=== PATIENT | female | born 1965 | race Caucasian/White ===

== ENCOUNTER 2018-09-18 08:01 | Inpatient (IN) ==
--- NOTE | 2018-09-18 08:04 | Emergency Department Note ---
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 Disposition: Admitted As Inpatient Condition: Serious Time of Disposition: 11:54 General Adult HPI - General Stated complaint: lower abdominal pain Time Seen by Provider: 09/18/18 08:01 - Related Data Home Medications Medication Instructions Recorded Confirmed Aspirin Enteric Coated [Aspirin EC] 81 mg PO DAILY 05/12/18 09/18/18 Atenolol [Tenormin] 50 mg PO BID 05/12/18 09/18/18 Cyclobenzaprine [Flexeril] 10 mg PO BID PRN 05/12/18 09/18/18 Gabapentin [Neurontin] 300 mg PO TID 05/12/18 09/18/18 Magnesium Oxide [Mag-Ox] 400 mg PO DAILY 05/12/18 09/18/18 Pantoprazole Sodium [Protonix] 40 mg PO DAILY 05/12/18 09/18/18 Pravastatin Sodium [Pravachol] 40 mg PO DAILY 05/12/18 09/18/18 amLODIPine [Norvasc] 5 mg PO DAILY 05/12/18 09/18/18 Lisinopril-HCTZ 20-12.5 [Prinzide 20 - 25 mg PO DAILY 08/28/18 09/18/18 20-12.5] Allergies Allergy/AdvReac Type Severity Reaction Status Date / Time ketorolac [From Toradol] Allergy Irritable Verified 08/28/18 19:24 Carbinoxamine [From Rondec] AdvReac Vomiting Verified 08/28/18 19:24 pseudoephedrine [From Rondec] AdvReac Vomiting Verified 08/28/18 19:24 Past Medical History - Past Medical History Medical history: Reports: diabetes, GERD, hyperlipidemia, hypertension Psychiatric history: Reports: no psych history - Social History Smoking Status: Former smoker Smokeless Tobacco Status: No Alcohol use: Reports: none Drug use: Reports: unknown Course Vital Signs Temperature 98.5 F 09/18/18 08:04 Pulse Rate 79 09/18/18 08:04 Respiratory Rate 18 09/18/18 08:04 Blood Pressure 93/56 09/18/18 08:04 O2 Sat by Pulse Oximetry 95 09/18/18 08:04 Temperature 97.7 F 09/18/18 10:43 Pulse Rate 74 09/18/18 10:43 Respiratory Rate 16 09/18/18 10:43 Blood Pressure 114/71 09/18/18 10:43 O2 Sat by Pulse Oximetry 91 09/18/18 10:43 Oxygen Delivery Oxygen Delivery Nasal Cannula Medical Decision Making - Lab Data Result diagrams: 09/18/18 09:02 09/18/18 09:02 Lab Results 09/18/18 09/18/18 09/18/18 Range/Units 09:02 09:02 09:02 WBC 20.0 H (4.3-11.1) K/mcL RBC 3.59 L (3.82-4.97) M/mcL Hgb 8.7 L (11.5-15.4) g/dL Hct 28.6 L (35.3-44.9) % MCV 79.7 L (83.0-100.0) fL MCH 24.2 L (28.0-33.3) pg MCHC 30.4 L (31.6-35.5) g/dL RDW 19.8 H (11.5-14.5) % Plt Count 351 (140-400) K/mcL MPV 9.5 (9.4-12.4) fL Immature Gran % 0.7 (0-4) % Seg Neutrophils % 84.7 % Lymphocytes % 8.7 % Monocytes % 5.6 % Eosinophils % 0.2 % Basophils % 0.1 % Neutrophils # 16.9 H (1.6-8.9) K/mcL Lymphocytes # 1.8 (0.6-4.6) K/mcL Monocytes # 1.1 (0.0-1.3) K/mcL Eosinophils # 0.0 (0.0-0.6) K/mcL Basophils # 0.0 (0.0-0.2) K/mcL Sodium 136 (136-145) mEq/L Potassium 3.7 (3.5-5.1) mEq/L Chloride 104 (98-107) mEq/L Carbon Dioxide 22 L (23-29) mEq/L BUN 20 (6-20) mg/dL Creatinine 1.54 H (0.60-1.20) mg/dL Est GFR ( Amer) 43 L (> 60) Est GFR (Non-Af Amer) 36 L (> 60) BUN/Creatinine Ratio 13 (6-26) Glucose 183 H (70-105) mg/dL Calculated Osmolality 289 (280-300) Lactic Acid 1.2 (0.5-2.2) mmol/L Calcium 9.0 (8.6-10.3) mg/dL Total Bilirubin 0.5 (0.3-1.0) mg/dL Direct Bilirubin 0.2 (0.0-0.2) mg/dL Indirect Bilirubin 0.3 (0.0-1.2) mg/dL AST 9 L (13-39) Units/L ALT 7 (7-52) Units/L Alkaline Phosphatase 68 (34-104) Units/L Troponin I (< 0.04) ng/mL Serum Total Protein 6.5 (6.4-8.9) g/dL Albumin 3.4 L (3.5-5.7) g/dL Globulin 3.1 (2.4-3.5) g/dL Albumin/Globulin Ratio 1.1 (1.1-2.2) Lipase 11 (11-82) Units/L // Range/Units 09:02 WBC (4.3-11.1) K/mcL RBC (3.82-4.97) M/mcL Hgb (11.5-15.4) g/dL Hct (35.3-44.9) % MCV (83.0-100.0) fL MCH (28.0-33.3) pg MCHC (31.6-35.5) g/dL RDW (11.5-14.5) % Plt Count (140-400) K/mcL MPV (9.4-12.4) fL Immature Gran % (0-4) % Seg Neutrophils % % Lymphocytes % % Monocytes % % Eosinophils % % Basophils % % Neutrophils # (1.6-8.9) K/mcL Lymphocytes # (0.6-4.6) K/mcL Monocytes # (0.0-1.3) K/mcL Eosinophils # (0.0-0.6) K/mcL Basophils # (0.0-0.2) K/mcL Sodium (136-145) mEq/L Potassium (3.5-5.1) mEq/L Chloride (98-107) mEq/L Carbon Dioxide (23-29) mEq/L BUN (6-20) mg/dL Creatinine (0.60-1.20) mg/dL Est GFR ( Amer) (> 60) Est GFR (Non-Af Amer) (> 60) BUN/Creatinine Ratio (6-26) Glucose (70-105) mg/dL Calculated Osmolality (280-300) Lactic Acid (0.5-2.2) mmol/L Calcium (8.6-10.3) mg/dL Total Bilirubin (0.3-1.0) mg/dL Direct Bilirubin (0.0-0.2) mg/dL Indirect Bilirubin (0.0-1.2) mg/dL AST (13-39) Units/L ALT (7-52) Units/L Alkaline Phosphatase (34-104) Units/L Troponin I < 0.03 (< 0.04) ng/mL Serum Total Protein (6.4-8.9) g/dL Albumin (3.5-5.7) g/dL Globulin (2.4-3.5) g/dL Albumin/Globulin Ratio (1.1-2.2) Lipase (11-82) Units/L Attestation Statement - Attestation Attestation: I reviewed the residents documentation and agree with the residents assessment and plan of care. I have personally had face to face time with the patient. (Brief History, Brief Exam, and MDM) I personally supervised and was present for the black/critical portions of the following procedures completed by the resident: (add procedures performed here). [id number] time provided Patient presents by EMS for nausea and vomiting. Actively retching upon arrival. I attest to supervise the resident physician interpretation of ECG. CT shows cecal mass with concern for obstruction. Surgery agreeable to admit
[2018-09-18] MEDS ORDERED: Ondansetron 4 MG/2 ML VIAL IVP STA (08:05)
[2018-09-18] MEDS ORDERED: *HR* FentaNYL (PF) 100 MCG/2 ML VIAL IVP ONE (08:06)
--- NOTE | 2018-09-18 08:06 | Emergency Department Note ---
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 Patient states she has had this pain before in June of this year states that she "suffered through it" for a couple of days before it spontaneously resolved. Patient's had no prior abdominal surgeries, she has a family history of colon cancer, she also admits to nausea and vomiting during this episode of bilious emesis, she denies fevers or chills, she has no diarrhea or constipation her last bowel movement was today. She has no other concerns or complaints at this time. Upon my initial evaluation the patient is lying in hospital bed she is holding the right side of her abdomen, she is moaning in pain. Patient appears to be in distress due to her pain. Pt Subjective Complaint: abdominal pain Onset (ago): day(s) Consistency: Worsening Location: RLQ Pain Severity: severe Pain Scale: 8 Quality: cramping, stabbing Radiation: epigastric Migration to: no migration Improves with: nothing Worsens with: nothing Associated symptoms: Reports: nausea, vomiting Treatments prior to arrival: none - Related Data Home Medications Medication Instructions Recorded Confirmed Albuterol Sulfate [Ventolin Hfa] 2 puff IH Q4H PRN 05/12/18 08/28/18 Allopurinol [Zyloprim 300 MG] 300 mg PO DAILY 05/12/18 08/28/18 Aspirin Enteric Coated [Aspirin EC] 81 mg PO DAILY 05/12/18 08/28/18 Atenolol [Tenormin] 50 mg PO BID 05/12/18 08/28/18 Cyanocobalamin (Vitamin B-12) 500 mcg PO DAILY 05/12/18 08/28/18 [Vitamin B-12] Cyclobenzaprine [Flexeril] 10 mg PO BID PRN 05/12/18 08/28/18 Gabapentin [Neurontin] 300 mg PO TID 05/12/18 08/28/18 Magnesium Oxide [Mag-Ox] 400 mg PO DAILY 05/12/18 08/28/18 Meloxicam [Mobic] 7.5 mg PO DAILY 05/12/18 08/28/18 Metformin HCl [Fortamet] 500 mg PO BIDWM 05/12/18 08/28/18 Pantoprazole Sodium [Protonix] 40 mg PO DAILY 05/12/18 08/28/18 Pravastatin Sodium [Pravachol] 40 mg PO DAILY 05/12/18 08/28/18 amLODIPine [Norvasc] 5 mg PO DAILY 05/12/18 08/28/18 Lisinopril-HCTZ 20-12.5 [Prinzide 20 - 25 mg PO DAILY 08/28/18 08/28/18 20-12.5] Previous Rx's Medication Instructions Recorded Ferrous Sulfate 325 mg PO DAILY@0800 #30 tablet 05/12/18 Allergies Allergy/AdvReac Type Severity Reaction Status Date / Time ketorolac [From Toradol] Allergy Irritable Verified 08/28/18 19:24 Carbinoxamine [From Rondec] AdvReac Vomiting Verified 08/28/18 19:24 pseudoephedrine [From Rondec] AdvReac Vomiting Verified 08/28/18 19:24 All systems ED: reviewed and negative except as stated. Review of Systems: As Per HPI Constitutional: Denies: fever, chills Cardiovascular: Denies: chest pain Respiratory: Denies: dyspnea Gastrointestinal: Reports: abdominal pain, nausea, vomiting. Denies: diarrhea, hematemesis, melena, hematochezia Genitourinary: Denies: urgency, dysuria, frequency, hematuria Musculoskeletal: Denies: back pain, neck pain Neurological: Denies: headache, weakness, numbness, paresthesias Abdominal Pain PMH - Past Medical History Medical history: Reports: diabetes, GERD, hyperlipidemia, hypertension Female Surgical History: Reports: , cholecystectomy Psychiatric history: Reports: no psych history - Social History Smoking status: Former smoker Alcohol use: Reports: none Drug use: Reports: unknown Physical Exam Constitutional: No acute distress, [id number], engaged to conversation, speech is fluid, answers questions appropriately Neuro: GCS 15, no overt focal neurological deficits Head: Atraumatic, normocephalic Eyes: Pupils equal, round and reactive to light, no scleral icterus, no conjunctival injection Mouth: No lip swelling, perioral cyanosis, drooling, or trismus. Neck: Trachea midline without deviation. Anterior neck is supple without swelling, no overt thyromegaly noted. Chest: Symmetric chest wall rise Heart: Cardiac rhythm and rate are regular with S1 and S2 , no S3 or S4 appreciated, no murmurs, rubs, or clicks. Lungs: Lungs are clear to auscultation bilaterally, without accessory muscle use or prolonged expiratory phase. No wheezes, rhonchi, rales or stridor appreciated. *Abdomen: Diffusely tender to palpation specifically in the right lower quadrant. Abdomen is obese, soft to palpation, normal bowel sounds, no evidence of bruising, surgical incisions, or abnormal mass. No abdominal bruit auscultated. Non-distended, non-rigid, no organomegaly, no ascites appreciated. No pulsatile mass, no guarding to palpation in all four quadrants, no rebound Extremities: No evidence of pedal edema, joint swelling or erythema. Puls es/motor intact in all 4 extremities. Integumentary: warm, dry, intact, normal color. No rash, cyanosis, diaphoresis, erythema, or pallor - General Limitations: no limitations General appearance: alert, in distress Course Course Narrative: CBC, BMP, hepatic panel, lipase, CT of the abdomen and pelvis without contrast Fentanyl, Zofran, IV fluids and management patient's symptoms. - Reevaluation(s) Reevaluation #1: Spoke with Dr. Zaidi in general surgery regarding the patient's cecal mass with small bowel obstruction. Dr. Zaidi requests patient to be made nothing by mouth status with NG tube placed. Dr. Zaidi like patient vomited directly to surgical medicine service states patient will be likely taken surgery today. 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 Patient has been informed of these findings and verbalizes her understanding and agreement with this plan. The patient's hemodynamic was stable time of admission. - Lab Data Lab results reviewed: Yes I reviewed the patient's lab results. Result diagrams: 09/18/18 09:02 09/18/18 09:02 Lab Results 09/18/18 09/18/18 09/18/18 Range/Units 09:02 09:02 09:02 WBC 20.0 H (4.3-11.1) K/mcL RBC 3.59 L (3.82-4.97) M/mcL Hgb 8.7 L (11.5-15.4) g/dL Hct 28.6 L (35.3-44.9) % MCV 79.7 L (83.0-100.0) fL MCH 24.2 L (28.0-33.3) pg MCHC 30.4 L (31.6-35.5) g/dL RDW 19.8 H (11.5-14.5) % Plt Count 351 (140-400) K/mcL MPV 9.5 (9.4-12.4) fL Immature Gran % 0.7 (0-4) % Seg Neutrophils % 84.7 % Lymphocytes % 8.7 % Monocytes % 5.6 % Eosinophils % 0.2 % Basophils % 0.1 % Neutrophils # 16.9 H (1.6-8.9) K/mcL Lymphocytes # 1.8 (0.6-4.6) K/mcL Monocytes # 1.1 (0.0-1.3) K/mcL Eosinophils # 0.0 (0.0-0.6) K/mcL Basophils # 0.0 (0.0-0.2) K/mcL Carbon Dioxide 22 L (23-29) mEq/L BUN 20 (6-20) mg/dL Creatinine 1.54 H (0.60-1.20) mg/dL Est GFR ( Amer) 43 L (> 60) Est GFR (Non-Af Amer) 36 L (> 60) BUN/Creatinine Ratio 13 (6-26) Glucose 183 H (70-105) mg/dL Lactic Acid 1.2 (0.5-2.2) mmol/L Calcium 9.0 (8.6-10.3) mg/dL Total Bilirubin 0.5 (0.3-1.0) mg/dL Direct Bilirubin 0.2 (0.0-0.2) mg/dL Indirect Bilirubin 0.3 (0.0-1.2) mg/dL AST 9 L (13-39) Units/L ALT 7 (7-52) Units/L Alkaline Phosphatase 68 (34-104) Units/L Troponin I (< 0.04) ng/mL Serum Total Protein 6.5 (6.4-8.9) g/dL Albumin 3.4 L (3.5-5.7) g/dL Globulin 3.1 (2.4-3.5) g/dL Albumin/Globulin Ratio 1.1 (1.1-2.2) Lipase 11 (11-82) Units/L 09/18/18 Range/Units 09:02 WBC (4.3-11.1) K/mcL RBC (3.82-4.97) M/mcL Hgb (11.5-15.4) g/dL Hct (35.3-44.9) % MCV (83.0-100.0) fL MCH (28.0-33.3) pg MCHC (31.6-35.5) g/dL RDW (11.5-14.5) % Plt Count (140-400) K/mcL MPV (9.4-12.4) fL Immature Gran % (0-4) % Seg Neutrophils % % Lymphocytes % % Monocytes % % Eosinophils % % Basophils % % Neutrophils # (1.6-8.9) K/mcL Lymphocytes # (0.6-4.6) K/mcL Monocytes # (0.0-1.3) K/mcL Eosinophils # (0.0-0.6) K/mcL Basophils # (0.0-0.2) K/mcL Carbon Dioxide (23-29) mEq/L BUN (6-20) mg/dL Creatinine (0.60-1.20) mg/dL Est GFR ( Amer) (> 60) Est GFR (Non-Af Amer) (> 60) BUN/Creatinine Ratio (6-26) Glucose (70-105) mg/dL Lactic Acid (0.5-2.2) mmol/L Calcium (8.6-10.3) mg/dL Total Bilirubin (0.3-1.0) mg/dL Direct Bilirubin (0.0-0.2) mg/dL Indirect Bilirubin (0.0-1.2) mg/dL AST (13-39) Units/L ALT (7-52) Units/L Alkaline Phosphatase (34-104) Units/L Troponin I < 0.03 (< 0.04) ng/mL Serum Total Protein (6.4-8.9) g/dL Albumin (3.5-5.7) g/dL Globulin (2.4-3.5) g/dL Albumin/Globulin Ratio (1.1-2.2) Lipase (11-82) Units/L - Radiology Data Radiology results reviewed: Yes I reviewed the patient's radiology results. Abdomen/Pelvis CT 09/18/18 08:05 IMPRESSION: Heterogeneous cecal mass measuring 5.0 x 4.7 x 5.6 cm consistent with a neoplastic process until proven otherwise. This results in a small bowel obstruction at the level of the ileocecal valve. Mesenteric lymphadenopathy adjacent to the cecum likely representing michelle metastatic disease. Indeterminate but likely benign liver lesion. Given the above findings, MRI of the abdomen is recommended for further evaluation. The above findings were discussed with Dr. Escalante at 8:50 a.m. on 09/18/2018. D/ / 09/18/2018 08:59:[address] MD / tip Interpreting Provider: Jose Lane MD - EKG Data EKG attestation: Yes I reviewed and interpreted this EKG. EKG results narrative: Patient EKG shows sinus rhythm with a heart of 75 bpm, IL interval of 161 ms, QS duration 103 ms, QT/QTc interval 394/441 ms effectively. There are no significant ST segment elevations, depressions, pathologic Q waves, abnormal T- wave inversions, nor any other signs of ischemic change. At this time is no prior EKG available.
[2018-09-18] MEDS ORDERED: 0.9 % Sodium Chloride 1,000 ML ONE (08:11)
[2018-09-18] MEDS: 0.9 % Sodium Chloride 1,000 ML IVC SCH ×2 (08:12→09:37)
[2018-09-18] MEDS ORDERED: *HR* HYDROmorphone (PF) 1 MG/ML SYRINGE IVP ONE (09:00)
[2018-09-18] MEDS ORDERED: Ondansetron 4 MG/2 ML VIAL IVP ONE ×2 (09:01→17:32)
[2018-09-18 09:14] LABS: Basophils % 0.1 %; Eosinophils % 0.2 %; Hematocrit 28.6 % (35.3-44.9); Hemoglobin 8.7 g/dL (11.5-15.4); Immature Granulocytes % 0.7 % (0-4); Lymphocytes # 1.8 K/mcL (0.6-4.6); Lymphocytes % 8.7 %; Mean Corpuscular HGB Conc 30.4 g/dL (31.6-35.5); Mean Corpuscular Hemoglobin 24.2 pg (28.0-33.3); Mean Corpuscular Volume 79.7 fL (83.0-100.0); Mean Platelet Volume 9.5 fL (9.4-12.4); Monocytes # 1.1 K/mcL (0.0-1.3); Monocytes % 5.6 %; Neutrophils # 16.9 K/mcL (1.6-8.9); Platelet Count 351 K/mcL (140-400); Red Blood Count 3.59 M/mcL (3.82-4.97); Red Cell Distribution Width 19.8 % (11.5-14.5); Segmented Neutrophils % 84.7 %
--- NOTE | 2018-09-18 09:16 | Anesthesia Evaluation PreOp ---
Date of Encounter: 09/18/18 Time of Encounter: 09:49 - Past History Planned Operation: EXP LAPAROTOMY, RIGHT HEMICOLECTOMY Cardiac History: HTN, Hyperlipidemia Pulmonary History: Smoker, COPD [employer] History: Denies Any Significant HX Other Medical History: Renal (CKD3, ? MARK), Bleeding (ANEMIA), Diabetes Type II, GERD, Other (RIGHT CECAL MASS, WITH SBO) Anesthesia History: No Prior Anesthetic Complications, Past Anesthesia Alcohol Use: none Drug use: unknown Medications and Allergies Aspirin Enteric Coated [Aspirin EC] 81 mg PO DAILY 05/12/18 [History] Atenolol [Tenormin] 50 mg PO BID 05/12/18 [History] Cyclobenzaprine [Flexeril] 10 mg PO BID PRN 05/12/18 [History] Gabapentin [Neurontin] 300 mg PO TID 05/12/18 [History] Magnesium Oxide [Mag-Ox] 400 mg PO DAILY 05/12/18 [History] Pantoprazole Sodium [Protonix] 40 mg PO DAILY 05/12/18 [History] Pravastatin Sodium [Pravachol] 40 mg PO DAILY 05/12/18 [History] amLODIPine [Norvasc] 5 mg PO DAILY 05/12/18 [History] Lisinopril-HCTZ 20-12.5 [Prinzide 20-12.5] 20 - 25 mg PO DAILY 08/28/18 [History] Allergy/AdvReac Type Severity Reaction Status Date / Time ketorolac [From Toradol] Allergy Irritable Verified 08/28/18 19:24 Carbinoxamine [From Rondec] AdvReac Vomiting Verified 08/28/18 19:24 pseudoephedrine [From Rondec] AdvReac Vomiting Verified 08/28/18 19:24 - Meds/Allergy Pre-op Review Medications Reviewed: Yes Allergies Reviewed: Yes Beta Blockers on Current Med List: No Anesthesia Results - Labs 09/18/18 09:02 09/18/18 09:02 Anesthesia Exam Vital Signs/O2 Sat/Glucose, Most Recent Temp Pulse Resp BP Pulse Ox 98.5 F 79 18 93/56 95 09/18/18 08:04 09/18/18 08:04 09/18/18 08:04 09/18/18 08:04 09/18/18 08:04 Weight: 91 KG - BMI 37 NPO (# of Hours): 8 - HEENT Mallampati: II Teeth: Edentulous - Cardiac Rhythm: Regular - Pulmonary Breath Sounds: bilateral Clear Anesthesia Assess/Plan ASA Score: 3, E Anesthetic Plan: General, Regional Nerve Block (POSSIBLE SHARI TAP BLOCK FOR POST OPERATIVE PAIN) Monitoring Plan: Standard Monitors Recovery Plan: PACU
[2018-09-18 09:32] LABS: Albumin 3.4 g/dL (3.5-5.7); Albumin/Globulin Ratio 1.1 (1.1-2.2); Bilirubin,Direct 0.2 mg/dL (0.0-0.2); Bilirubin,Indirect 0.3 mg/dL (0.0-1.2); Bilirubin,Total 0.5 mg/dL (0.3-1.0); Globulin 3.1 g/dL (2.4-3.5); Total Protein 6.5 g/dL (6.4-8.9)
[2018-09-18 10:20] LABS: Potassium 3.7 mEq/L (3.5-5.1)
[2018-09-18] MEDS ORDERED: *HR* OxyCODONE Immed Rel 5 MG TABLET PO PRN (12:52)
[2018-09-18] MEDS ORDERED: Naloxone 0.4 MG/ML INJ IVP PRN ×2 (12:52→21:40)
[2018-09-18] MEDS ORDERED: traMADol 50 MG TABLET PO PRN (12:52)
[2018-09-18] MEDS ORDERED: Ondansetron ODT 4 MG TAB.RAPDIS SL PRN ×2 (12:52→21:40)
[2018-09-18] MEDS ORDERED: Albuterol 2.5 MG/3 ML NEBULIZER IH PRN ×2 (12:56→21:40)
[2018-09-18] MEDS ORDERED: 0.9 % Sodium Chloride 1,000 ML IVC SCH (13:00)
--- NOTE | 2018-09-18 13:00 | Acute Care Surgery H&P ---
Date of Encounter: 09/18/18 Time of Encounter: 12:57 Assessment and Plan (1) Small bowel obstruction Current Visit: Yes Status: Acute 52F current smoker with obstructing colon mass; NPO IVF pain control plan for R selina colectomy today The assessment and plan as outlined above was discussed with the patient and/or family members who expressed understanding and agreement. All questions were answered. History of Present Illness Chief complaint: vomiting, abdominal pain HPI: Ms. Dominguez is a 52 year old female H significant for obesity, COPD (current smoker) who presents with two day history of worsening abdominal pain and nausea and vomiting. The pain is localized to the lower quadrants bilaterally, non radiating, rates an 8/10. The pain is associated with bilious vomiting. Of note the patient states that she had a similar episode 2 months ago with resolution after two weeks. She has never had a colonoscopy, but suspects that this may be related to cancer as she lost 15lbs without any identifiable explanation. A CT scan was obtained which confirmed an abnormality at the ileocecal valve with proximal intestinal diltation proximal to that. Surgery was consulted for management recommendations Past Med Surg Social Fam HX - Past Medical History Medical history: diabetes, GERD, hyperlipidemia, hypertension Psychiatric history: no psych history - Past Surgical History Surgical History: , cholecystectomy - Social History Smoking Status: Current every day smoker Smokeless Tobacco Status: No Alcohol use: none Drug use: unknown - Family History Brother Hx Family Cardiac Disorders: Yes - Additional Family History Additional family history: brother: from colon cancer in his 60s Medications and Allergies Aspirin Enteric Coated [Aspirin EC] 81 mg PO DAILY 05/12/18 [History] Atenolol [Tenormin] 50 mg PO BID 05/12/18 [History] Cyclobenzaprine [Flexeril] 10 mg PO BID PRN 05/12/18 [History] Gabapentin [Neurontin] 300 mg PO TID 05/12/18 [History] Magnesium Oxide [Mag-Ox] 400 mg PO DAILY 05/12/18 [History] Pantoprazole Sodium [Protonix] 40 mg PO DAILY 05/12/18 [History] Pravastatin Sodium [Pravachol] 40 mg PO DAILY 05/12/18 [History] amLODIPine [Norvasc] 5 mg PO DAILY 05/12/18 [History] Lisinopril-HCTZ 20-12.5 [Prinzide 20-12.5] 20 - 25 mg PO DAILY 08/28/18 [Hi story] Allergy/AdvReac Type Severity Reaction Status Date / Time ketorolac [From Toradol] Allergy Irritable Verified 08/28/18 19:24 Carbinoxamine [From Rondec] AdvReac Vomiting Verified 08/28/18 19:24 pseudoephedrine [From Rondec] AdvReac Vomiting Verified 08/28/18 19:24 Review of Systems All systems PM: 12 point ROS negative besides HPI findings General Surgery Exam Initial Vital Signs Temp Pulse Resp BP Pulse Ox 98.5 F 79 18 93/56 95 09/18/18 08:04 09/18/18 08:04 09/18/18 08:04 09/18/18 08:04 09/18/18 08:04 - General physical appearance no distress - Eyes PERRL, normal ocular movement - ENT normocephalic - Neck trachea midline, no lymphadectomy - Respiratory normal expansion, normal respiratory effort - Cardiovascular Cardiovascular exam: Present: RRR - Abdomen Abdomen general surgery: Present: soft, tender, surgical scars Abdominal Tenderness: Present: RLQ, LLQ - Integumentary Integumentary general surgery: Present: warm and dry - Neurologic Present: CN 2-12 grossly intact - Musculoskeletal Present: normal posture - Psychiatric Psychiatric general surgery: Present: A&Ox3 Results - Labs 09/18/18 09:02 09/18/18 09:02 Abnormal lab results WBC 20.0 K/mcL (4.3-11.1) H 09/18/18 09:02 RBC 3.59 M/mcL (3.82-4.97) L 09/18/18 09:02 Hgb 8.7 g/dL (11.5-15.4) L 09/18/18 09:02 Hct 28.6 % (35.3-44.9) L 09/18/18 09:02 MCV 79.7 fL (83.0-100.0) L 09/18/18 09:02 MCH 24.2 pg (28.0-33.3) L 09/18/18 09:02 MCHC 30.4 g/dL (31.6-35.5) L 09/18/18 09:02 RDW 19.8 % (11.5-14.5) H 09/18/18 09:02 Neutrophils # 16.9 K/mcL (1.6-8.9) H 09/18/18 09:02 Carbon Dioxide 22 mEq/L (23-29) L 09/18/18 09:02 Creatinine 1.54 mg/dL (0.60-1.20) H 09/18/18 09:02 Est GFR ( Amer) 43 (> 60) L 09/18/18 09:02 Est GFR (Non-Af Amer) 36 (> 60) L 09/18/18 09:02 Glucose 183 mg/dL (70-105) H 09/18/18 09:02 POC Glucose 186 mg/dL (70-99) H 09/18/18 09:09 AST 9 Units/L (13-39) L 09/18/18 09:02 Albumin 3.4 g/dL (3.5-5.7) L 09/18/18 09:02 Diabetes panel 09/18/18 Range/Units 09:02 Sodium 136 (136-145) mEq/L Potassium 3.7 (3.5-5.1) mEq/L Chloride 104 (98-107) mEq/L Carbon Dioxide 22 L (23-29) mEq/L BUN 20 (6-20) mg/dL Creatinine 1.54 H (0.60-1.20) mg/dL Glucose 183 H (70-105) mg/dL Calcium 9.0 (8.6-10.3) mg/dL AST 9 L (13-39) Units/L ALT 7 (7-52) Units/L Alkaline Phosphatase 68 (34-104) Units/L Albumin 3.4 L (3.5-5.7) g/dL Calcium panel 09/18/18 Range/Units 09:02 Calcium 9.0 (8.6-10.3) mg/dL Albumin 3.4 L (3.5-5.7) g/dL Pituitary panel 09/18/18 Range/Units 09:02 Sodium 136 (136-145) mEq/L Potassium 3.7 (3.5-5.1) mEq/L Chloride 104 (98-107) mEq/L Carbon Dioxide 22 L (23-29) mEq/L BUN 20 (6-20) mg/dL Creatinine 1.54 H (0.60-1.20) mg/dL Glucose 183 H (70-105) mg/dL Calcium 9.0 (8.6-10.3) mg/dL Adrenal panel 09/18/18 Range/Units 09:02 Sodium 136 (136-145) mEq/L Potassium 3.7 (3.5-5.1) mEq/L Chloride 104 (98-107) mEq/L Carbon Dioxide 22 L (23-29) mEq/L BUN 20 (6-20) mg/dL Creatinine 1.54 H (0.60-1.20) mg/dL Glucose 183 H (70-105) mg/dL Calcium 9.0 (8.6-10.3) mg/dL Total Bilirubin 0.5 (0.3-1.0) mg/dL AST 9 L (13-39) Units/L ALT 7 (7-52) Units/L Alkaline Phosphatase 68 (34-104) Units/L Albumin 3.4 L (3.5-5.7) g/dL All other labs normal. - Imaging CT scan - abdomen: report reviewed, image reviewed CT scan - pelvis: report reviewed, image reviewed
[2018-09-18 13:38] LABS: Amphetamine Screen,Urine Negative ng/mL (Cutoff=1000); Barbiturate Screen,Urine Negative ng/mL (Cutoff=200); Benzodiazepines Screen,Urine Negative ng/mL (Cutoff=200); Cannabinoid Screen,Urine Negative ng/mL (Cutoff = 50); Cocaine Screen,Urine Negative ng/mL (Cutoff= 300); Opiate Screen,Urine Positive ng/mL (Cutoff=300); Phencyclidine Screen,Urine Negative ng/mL (Cutoff=25)
[2018-09-18] MEDS ORDERED: Morphine Sulfate 2 MG/ML SYRINGE IVP ONE (16:43)
[2018-09-18] MEDS ORDERED: Ropivacaine/PF 0.5% 30 ML VIAL ONE (16:51)
[2018-09-18] MEDS ORDERED: Acetaminophen IV 1,000 MG/100 ML INFUS..BTL ONE (16:51)
[2018-09-18] MEDS ORDERED: Calcium Gluconate 1,000 MG/10 ML VIAL ONE (16:52)
[2018-09-18] MEDS ORDERED: *HR* FentaNYL (PF) 100 MCG/2 ML VIAL ONE ×2 (16:56→17:24)
[2018-09-18] MEDS ORDERED: *HR* Midazolam HCl 2 MG/2 ML VIAL ONE (16:57)
[2018-09-18] MEDS ORDERED: *HR* Propofol 200 MG/20 ML VIAL IVP ONE (16:57)
[2018-09-18] MEDS ORDERED: *HR* Rocuronium Bromide 50 MG/5 ML VIAL ONE ×2 (17:00→19:57)
[2018-09-18] MEDS ORDERED: Lidocaine -MPF 2% 2 ML VIAL ONE (17:00)
[2018-09-18] MEDS ORDERED: Dexamethasone 4 MG/ML VIAL ONE (17:00)
[2018-09-18] MEDS ORDERED: *HR* Succinylcholine 200 MG/10 ML VIAL IVP ONE (17:00)
[2018-09-18] MEDS ORDERED: *HR* PHENYLEPHRINE 1,000 MCG/10 ML SYRINGE IVP ONE (17:01)
[2018-09-18] MEDS: *HR* FentaNYL (PF) 100 MCG/2 ML VIAL IVP PRN ×2 (17:24→18:00)
[2018-09-18] MEDS ORDERED: *HR* Promethazine 25 MG/ML VIAL IVP PRN (17:32)
[2018-09-18] MEDS ORDERED: *HR* HYDROmorphone (PF) 1 MG/ML SYRINGE IVP PRN (17:32)
[2018-09-18] MEDS ORDERED: *HR* Meperidine 25 MG/ML SYRINGE IVP PRN (17:32)
[2018-09-18] MEDS ORDERED: Ipratropium/Albuterol Neb 3 ML IH PRN (17:33)
[2018-09-18] MEDS ORDERED: Ipratropium/Albuterol Neb 3 ML ONE (17:34)
[2018-09-18] MEDS ORDERED: CefOXitin 1,000 MG VIAL ONE (17:56)
[2018-09-18] MEDS ORDERED: cefOXitin 2,000 MG in Water for inj. (sterile) 20 ML IVP ONE (18:49)
[2018-09-18] MEDS ORDERED: Ondansetron 4 MG/2 ML VIAL ONE (19:01)
--- NOTE | 2018-09-18 21:03 | Operative Note ---
Date of procedure: 09/18/18 Pre-op diagnosis: small bowel obstruction Post-op diagnosis: other (small bowel obstructon 2/2 colon cancer) Procedure: open right hemicolectomy Implants: none Complications: none Anesthesia: GETA Local Anesthetics: 0.5% Sensorcaine HCL SubQ (cc) Surgeon: Bernabe Silva Was there an railways assistant present: Yes [facility] Manager: Corine Bolanos Estimated blood loss (cc): 50 Specimen: right colon and contents Condition: stable Disposition: PACU Procedure in Detail: patient was brought into the operating room suite. placed in supine position. mechanical dvt prophylaxis was placed. she underwent smooth induction of anesthesia. preoperative antibiotics were given. she was prepped and draped in the usual fashion. A timeout was held identifying correct patient, pathology, procedure, and physician. I created a midline incision, dissected through the soft tissue layers to enter the abdomen. I quickly noted lots of adhesions, fibrinous deposition, and serosanginous fluid, all concerning for microperforation. I set up the books willis and began my procedure. I was able to appreciate a large mass at the cecum that created a small focal point for the bowel to adhere to. I dissected along the white line of toldt and using blunt and sharp dissection I dissected the retroperitoneum from the colon. I then proceeded towards the hepatic fluxu re and was able to mobilize it as well until i was able to see the duodenum. I then opened the gastrocolic ligament to moblize the proximal hepatic flexure, created a mesenteric window lateral to the middle colic and stapled across the transverse colon with the TALA 75mm blue load stapler. I then performed the same maneuver proximally to the mass about 5cm along the terminal ileum. I then used the impact machine to ligate through the mesentery and passed off the specimen. I then created enterotomies in both the proximal and distal limb, inserted the arms of the stapler and fired the stapler to create the side to side anastamosis. I then lined up the enterotomy and closed it with the TA stapler. I then reinforced the staple line with Lembert sutures. The anastamosis was still wide and patent. I then closed the fascia with a looped PDS in a running fashion, closed the deep dermal layer with 3-0 vicryl and closed thes skin. I then applied the Jessee dressing. I then concluded the procedure and the patient was transported to PACU in stable condition.
--- NOTE | 2018-09-18 21:26 | Anesthesia Evaluation Post Op ---
Date of Encounter: 09/18/18 Time of Encounter: 21:25 - Vital Signs Vital Signs: Vital Signs/O2 Sat, Most Current Temp Pulse Resp BP Pulse Ox 98.9 F 85 18 118/64 93 09/18/18 20:57 09/18/18 21:17 09/18/18 21:17 09/18/18 21:17 09/18/18 21:17 - Lungs Lungs: Clear Ascult./Percussion - Airway Airway: Non-obstructed - Cardiovascular Regular Rate - Mental Status Mental Status: Asleep with brisk response to light stimulation - Pain Pain Scale: 0 Pain Scale used: Numeric (1 - 10) - Nausea Vomiting Nausea Vomiting: Not Present - Hydration Hydration: NPO, Lama catheter - Discharge PostOp Status: Transfer Patient to floor
[2018-09-18] MEDS ORDERED: *HR* Metoprolol 5 MG/5 ML VIAL IVP PRN (21:40)
[2018-09-18] MEDS ORDERED: *HR* HYDROmorphone 20 MG/20 ML PCA IVC PRN (21:40)
[2018-09-18] MEDS ORDERED: Morphine PCA 30 MG/ 30 ML 30 ML PCA.VIAL IVC PRN (23:25)
[2018-09-19] MEDS: D5% in 0.9% NACL 1,000 ML IVC SCH ×2 (00:19→09:08)
[2018-09-19] MEDS: Piperacillin/Tazobactam 3.375 GM in 0.9 % Sodium Chloride Mini Bag 100 ML IVPB SCH ×4 (00:27→23:59)
[2018-09-19] MEDS ORDERED: *HR* Enoxaparin 40 MG/0.4 ML SYRINGE SQ SCH ×2 (06:00)
[2018-09-19 06:47] LABS: Calcium 8.1 mg/dL (8.6-10.3)
[2018-09-19 08:15] LABS: Basophils % 0.1 %; Hemoglobin 8.1 g/dL (11.5-15.4); Immature Granulocytes % 0.4 % (0-4); Lymphocytes # 0.9 K/mcL (0.6-4.6); Lymphocytes % 6.2 %; Mean Corpuscular Hemoglobin 24.6 pg (28.0-33.3); Mean Corpuscular Volume 82.1 fL (83.0-100.0); Mean Platelet Volume 10.1 fL (9.4-12.4); Monocytes # 0.9 K/mcL (0.0-1.3); Monocytes % 6.6 %; Neutrophils # 12.1 K/mcL (1.6-8.9); Platelet Count 344 K/mcL (140-400); Red Blood Count 3.29 M/mcL (3.82-4.97); Red Cell Distribution Width 19.8 % (11.5-14.5); Segmented Neutrophils % 86.7 %
--- NOTE | 2018-09-19 08:35 | AcuteCareSurgery Progress Note ---
Date of Encounter: 09/19/18 Time of Encounter: 07:00 - Assessment and Plan (1) Small bowel obstruction Current Visit: Yes Status: Acute S/P right hemicolectomy with ileocecal anastomosis for presumed malignant colon mass. Maintain NGT, add ice chips and Biotene. Increase activity. (2) Hypertension Current Visit: No Status: Acute Restart home meds when pt is PO. VS q shift. Qualifiers: Hypertension type: essential hypertension Qualified Code(s): I10 - Essential (primary) hypertension (3) Morbid obesity Current Visit: No Status: Acute Subjective Patient reports: still having pain, pain is less, no flatus, no bowel movement, afebrile Narrative: POD#1 right hemocolectomy for probable malignancy. Pt is requesting NGT removal and asking for something to eat/drink. Objective Vital Signs - Last 8 Hours Temp Pulse Resp BP Pulse Ox 09/19/18 06:31 98.5 F 88 15 122/76 90 09/19/18 02:00 98.6 F 82 20 122/75 94 Intake and Output 09/18/18 09/19/18 09/19/18 23:59 07:59 15:59 Intake Total 20 / 1020 100 / 100 Output Total 100 / 100 1300 / 1300 Balance -80 / 920 -1200 / -1200 Intake: IV Fluids 20 / 1020 100 / 100 Mefoxin 2,000 MG In Water for 20 / 20 inj. (sterile) 20 ML @ 300 mls/ hr IVP ONCE ONE Rx#:[id number] Zosyn 3.375 GM In 0.9 % Sodium 100 / 100 Chloride (Mini-Bag +) 100 ML @ 25 mls/hr IVPB Q8HR ON LICENSE OF [facility] Rx#: [id number] Oral 0 / 0 0 / 0 Output: Urine 50 / 50 Gastric Tube Lavage Amount 650 / 650 Right Nare 650 / 650 Estimated Blood Loss 50 / 50 Catheter 275 / 275 Urethral (Lama) 250 / 250 Gastric Drainage 375 / 375 Other: Blood Glucose* 162 220 - General physical appearance well nourished, moderate distress, moderate pain (controlled) - Eyes PERRL, normal ocular movement - ENT no congestion, dry mucosa - Neck Neck exam: trachea midline, no venous distension - Respiratory normal respiratory effort, clear to auscultation - Cardiovascular Cardiovascular exam: Present: RRR. Absent: JVD - Abdomen Abdomen: Present: bowel sounds present (normal), soft, tender Abdominal Tenderness: diffusely - Incision Incision: Present: clean and dry, intact - Neurologic CN 2-12 grossly intact, normal coordination - Musculoskeletal normal posture - Psychiatric oriented to time, oriented to person, oriented to place - Labs 09/19/18 05:41 09/19/18 05:41 Diabetes panel 09/18/18 09/19/18 Range/Units 09:02 05:41 Sodium 136 139 (136-145) mEq/L Potassium 3.7 4.0 (3.5-5.1) mEq/L Chloride 104 105 (98-107) mEq/L Carbon Dioxide 22 L 21 L (23-29) mEq/L BUN 20 26 H (6-20) mg/dL Creatinine 1.54 H 1.59 H (0.60-1.20) mg/dL Glucose 183 H 214 H (70-105) mg/dL Calcium 9.0 8.1 L (8.6-10.3) mg/dL AST 9 L (13-39) Units/L ALT 7 (7-52) Units/L Alkaline Phosphatase 68 (34-104) Units/L Albumin 3.4 L (3.5-5.7) g/dL Calcium panel 09/18/18 09/19/18 Range/Units 09:02 05:41 Calcium 9.0 8.1 L (8.6-10.3) mg/dL Albumin 3.4 L (3.5-5.7) g/dL Pituitary panel 09/18/18 09/19/18 Range/Units 09:02 05:41 Sodium 136 139 (136-145) mEq/L Potassium 3.7 4.0 (3.5-5.1) mEq/L Chloride 104 105 (98-107) mEq/L Carbon Dioxide 22 L 21 L (23-29) mEq/L BUN 20 26 H (6-20) mg/dL Creatinine 1.54 H 1.59 H (0.60-1.20) mg/dL Glucose 183 H 214 H (70-105) mg/dL Calcium 9.0 8.1 L (8.6-10.3) mg/dL Adrenal panel 09/18/18 09/19/18 Range/Units 09:02 05:41 Sodium 136 139 (136-145) mEq/L Potassium 3.7 4.0 (3.5-5.1) mEq/L Chloride 104 105 (98-107) mEq/L Carbon Dioxide 22 L 21 L (23-29) mEq/L BUN 20 26 H (6-20) mg/dL Creatinine 1.54 H 1.59 H (0.60-1.20) mg/dL Glucose 183 H 214 H (70-105) mg/dL Calcium 9.0 8.1 L (8.6-10.3) mg/dL Total Bilirubin 0.5 (0.3-1.0) mg/dL AST 9 L (13-39) Units/L ALT 7 (7-52) Units/L Alkaline Phosphatase 68 (34-104) Units/L Albumin 3.4 L (3.5-5.7) g/dL Consult Discharge Plan - Plan Referrals: Blaise Meyer MD [Primary Care Provider] -
[2018-09-19] MEDS ORDERED: Saliva Stimulant 100ml BOTTLE PO PRN (08:45)
[2018-09-19] MEDS ORDERED: Pantoprazole 40 MG in 0.9 % Sodium Chloride Mini Bag 100 ML IVPB SCH (09:00)
[2018-09-19] MEDS ORDERED: Ipratropium/Albuterol Neb 3 ML IH SCH (10:00)
[2018-09-19 11:30] LABS: ABG Base Excess -1 mEq/L (-2 to 3); ABG HCO3 24 mEq/L (21-27); ABG Oxygen Saturation 87 % (95-98); ABG PCO2 40 mmHg (35-45); ABG PH 7.39 pH Units (7.32-7.45); ABG PO2 54 mmHg (85-104); ABG TCO2 26 mEq/L (20-26)
[2018-09-19] MEDS ORDERED: Morphine PCA 30 MG/ 30 ML 30 ML PCA.VIAL IVC PRN (12:22)
--- NOTE | 2018-09-19 12:29 | Event Note ---
<Kelsey De Paz - Last Filed: 09/19/18 12:02> Date of Encounter: 09/19/18 Time of Encounter: 12:02 Notified this am aprox 0950 by bedside RN, Mckenzie, concern for course crackles. RN requests CXR, stating, "I'm concerned she may be fluid overloaded." Reviewed with Mckenzie that patient was less than 12 hours postop, was hypovolemic at this point in time, had no IS at bedside (pre or postop) and would benefit from aggressive pulmonary toileting, RT treatments with Duoneb and acapella given her smoking history of 36 years and undiagnosed COPD. Pt should also get OOB to chair. Orders were placed to RT for Duoneb, aggressive pulm toileting, and acapella. Notified per recharger aprox 11:15 am of pt diaphoretic, cold, and SOB. abstractor was with course crackles. Verbal orders for blood glucose and ABG given. ABG results received en route to assess patient. PH 7.388, PCO2 40.4, PO 253.9, HCO3 24.3, BE -0.6, cSO2 87.2% on 15L oxyMask. Upon my assessment, pt posterior lung sounds are clear/diminished. Her anterior lung sounds are with inspiratory wheezing in the RUL. She is on 15L Oxi mask. She is drowsy but arousable. Reviewed with patient the need for her aggressive participation including getting out of bed to chair (now with assistance), using the IS, and practicing pursed lip breathing. pt verbalizes understanding and is agreeable. Further reviewed with patient the risk of respiratory decline and the sequela associated up to and including intubation/. Of note, upon my entry into the room, the patient's IV fluids are disconnected with the line noted to be looped back and Upon itself. Protonix and SENIOR SYSTEMS ARCHITECT are running as well as IV antibiotics. She had good bowel sounds upon our initial assessment this a.m. however bowel sounds have ceased and she is having increased gastric output. We will therefore continue her NG tube. Reviewed with ABIDA Rincon findings of IV fluids not running who reports need for another pump and that she would attempt to locate pump and reconnect IVF. Further reviewed the need for patient to get OOB STAT, participate in pulm toileting as discussed above, keep sats 89-92% and avoid high flow O2, and would adjust medications. Reviewed with RT findings and plan. Plan: Keep sats 89-92% Avoid high-flow O2 for long periods to decrease risk of resp drive suppression Decrease Morphine fitter up; add scheduled Ofirmev to reduce need for narcotic pain control, wean fitter up to off if necessary IS and acapella/pickle to be left at patient bedside so that both RN And RT can assist the patient with aggressive pulm toileting OOB at minimum TID Continue NG tube, NPO except ice chips apply ice pack to abdomen for comfort May clamp NG to ambulate given increased blood sugar, stopped D5 .9, change to 0.9 NS continuous Will attempt to hold off on CXR as we suspect resp status can be corrected with aggressive participation Will increase scheduled duoneb to Q4H Continue to closely monitor Attending surgeon notified per above and is agreeable. <Maggie Campoverde F - Last Filed: 09/19/18 16:00> Date of Encounter: 09/19/18 I examined this patient and my medical decision-making was reviewed with the MULE SPINNER. I agree with the documented findings, disposition and treatment plan as described and set forth above. Further exam in afternoon finds pt comfortable with some inspiratory wheezing, acceptable pain control, functioning NGT and no new complaints.
[2018-09-19] MEDS: 0.9 % Sodium Chloride 1,000 ML IVC SCH ×2 (13:25→23:34)
[2018-09-19] MEDS: Acetaminophen IV 1,000 MG/100 ML INFUS..BTL IVPB SCH ×3 (13:49→23:33)
[2018-09-19] MEDS: Ipratropium/Albuterol Neb 3 ML IH SCH ×4 (13:55→23:30)
[2018-09-20] MEDS: Ipratropium/Albuterol Neb 3 ML IH SCH ×5 (04:01→19:43)
[2018-09-20] MEDS: *HR* Enoxaparin 30 MG/0.3 ML SYRINGE SQ SCH (05:30)
[2018-09-20] MEDS: Acetaminophen IV 1,000 MG/100 ML INFUS..BTL IVPB SCH ×4 (05:30→23:20)
[2018-09-20] MEDS ORDERED: Dextrose Gel 15 GM/37.5 ML TUBE PO PRN ×2 (08:44)
[2018-09-20] MEDS ORDERED: *HR* Dextrose 50 % in Water (Syg) 50 ML SYRINGE IVP PRN (08:44)
[2018-09-20] MEDS ORDERED: D5% in Water 1,000 ML IVC PRN (08:44)
[2018-09-20] MEDS: Piperacillin/Tazobactam 3.375 GM in 0.9 % Sodium Chloride Mini Bag 100 ML IVPB SCH ×3 (09:26→23:22)
[2018-09-20] MEDS: Pantoprazole 40 MG VIAL IVP SCH (09:26)
[2018-09-20] MEDS: 0.9 % Sodium Chloride 1,000 ML IVC SCH ×2 (09:27→20:17)
[2018-09-20] MEDS ORDERED: *HR* Metoprolol 5 MG/5 ML VIAL IVP ONE (11:44)
--- NOTE | 2018-09-20 12:01 | AcuteCareSurgery Progress Note ---
<Kelsey De Paz Nidia - Last Filed: 09/20/18 11:49> Date of Encounter: 09/20/18 Time of Encounter: 07:45 (Reassessed 1140) - Assessment and Plan (1) Small bowel obstruction Current Visit: Yes Status: Acute Date of procedure: 09/18/18 Pre-op diagnosis: small bowel obstruction Post-op diagnosis: other (small bowel obstructon 2/2 colon cancer) Procedure: open right hemicolectomy Implants: none Complications: none Anesthesia: GETA Local Anesthetics: 0.5% Sensorcaine HCL SubQ (cc) Surgeon: Bernabe Silva POD #2 as above. Pathology remains pending at this time. Initial assessment this a.m. at 0 745 noted absent bowel sounds, course crackles in the left and inspiratory wheezing bilateral. She was tachycardic and a EKG was therefore ordered. Noted sinus tachycardia; she was placed on telemetry which continues. She remains tachycardic but notably she is getting Q4 hour respiratory treatments. Surgery has received appropriate notifications from the bedside RN that patient is refusing to have her Bradford catheter removed, refused to have her labs drawn, did become hypoxic when sitting up at the side of the bed. She was returned to the bed and from this point refuses to attempt to get out of bed. She inquires about transfer to another facility. The CONTROL ELECTRICIAN is at bedside again at 1140 and reviews above with the patient. She is noted to continue with tachycardia in the 1teens. She has not received any dos es of PRN metoprolol that was ordered for hypertension. We will give one time order for 5 mg of metoprolol and change the order to reflect for hypertension or tachycardia. She has consented to laboratory studies in those have been drawn. The results are pending at this time. Chest x-ray was also ordered and pending. This CONTROL ELECTRICIAN again reviewed with patient the vital need for her to participate in care including IS, OOB to chair, and adhering to the recommended treatment course. She again requests that the NG tube be removed however she does not have any bowel sounds presently and continues to have thick green output Plan: Continue supportive care and discomfort management while awaiting full return of bowel function NPO except ice chips NG to LIWS Continue IVF Scheduled Ofirmev Stop SUBSTATION MAINTENANCE TECHNICIAN, add SL oxycodone Continue G.I. and DVT prophylaxis Incentive spirometry and acapella/abika 10 times every hour while awake O2 titration to keep sats 89-92%, avoid highflow O2 if possible Duonebs CXR pending Out of bed to chair TID PT/OT Apply ice 20 minutes on 20 minutes off as needed Closely monitor, may need transfer if resp status deteriorates YESICA dressing to remain in place until POD #7 (2) Hypertension Current Visit: Yes Status: Chronic prn metoprolol Qualifiers: Hypertension type: essential hypertension Qualified Code(s): I10 - Essential (primary) hypertension (3) Morbid obesity Current Visit: Yes Status: Chronic (4) DVT prophylaxis Current Visit: Yes Status: Acute Lovenox SQ EPCDs (5) Tobacco abuse Current Visit: Yes Status: Chronic Underlying COPD, 36 year smoking history see above (6) Neoplasm causing mass effect on adjacent structures Current Visit: Yes Status: Acute see above (7) Tachycardia Current Visit: Yes Status: Acute likely multifactorial. EKG Telemetry Metoprolol prn closely monitor (8) Hypoxia Current Visit: Yes Status: Acute see above; will closely observe for respiratory failure. Likely will need bipap if NG can be removed Subjective Patient reports: still having pain, voiding w/o difficulty (per bradford), no flatus, no bowel movement, shortness of breath, afebrile Objective Vital Signs - Last 8 Hours Temp Pulse Resp BP Pulse Ox 09/20/18 11:13 16 88 09/20/18 11:03 88 09/20/18 10:17 98.1 F 120 19 159/89 89 09/20/18 08:00 93 09/20/18 07:23 18 91 09/20/18 06:40 98.1 F 98 18 127/80 94 09/20/18 04:01 20 90 Intake and Output 09/19/18 09/20/18 09/20/18 23:59 07:59 15:59 Intake Total 1300 / 2935 260 / 1210 950 / 1210 Output Total 0 / 2200 1300 / 1500 200 / 1500 Balance 1300 / 735 -1040 / -290 750 / -290 Intake: IV Fluids 1300 / 2875 200 / 1150 950 / 1150 0.9 % Sodium Chloride 1,000 ML 1000 / 1000 950 / 950 @ 100 mls/hr IVC .Q10H [facility] Rx#: [id number] Ofirmev 1,000 mg/100 ml 1,000 200 / 300 100 / 100 mg In 100 ml @ 400 mls/hr IVPB Q6HR [facility] Rx#:[id number] Zosyn 3.375 GM In 0.9 % Sodium 100 / 300 100 / 100 Chloride (Mini-Bag +) 100 ML @ 25 mls/hr IVPB Q8HR [facility] Rx#: [id number] Oral 0 / 60 60 / 60 Output: Catheter 0 / 725 650 / 700 50 / 700 Gastric Drainage 0 / 825 650 / 800 150 / 800 Other: Meal npo Weight 93.5 kg Blood Glucose* 133 140 136 Patient Weight 09/20/18 23:59 Weight 93.5 kg - General physical appearance no distress, moderate pain, obese - Eyes normal ocular movement - ENT atraumatic, normocephalic - Neck Neck exam: trachea midline - Respiratory other (decreased, course right, insp wheezing) - Cardiovascular Cardiovascular exam: Present: tachycardia, no murmurs/rubs/gallops - Abdomen Abdomen: Present: soft, tender (expected postoperative). Absent: bowel sounds present Hernia: none - Incision Incision: Present: clean and dry, intact (YESICA dressing) - Neurologic normal sensation - Musculoskeletal normal posture - Psychiatric oriented to time, oriented to person, oriented to place, speech is normal, memory intact - Labs 09/19/18 05:41 09/19/18 05:41 Consult Discharge Plan - Plan Referrals: Blaise Meyer MD [Primary Care Provider] - <Robert Goyal - Last Filed: 09/20/18 12:30> Date of Encounter: 09/20/18 Objective Vital Signs - Last 8 Hours Temp Pulse Resp BP Pulse Ox 09/20/18 11:13 16 88 09/20/18 11:03 88 09/20/18 10:17 98.1 F 120 19 159/89 89 09/20/18 08:00 93 09/20/18 07:23 18 91 09/20/18 06:40 98.1 F 98 18 127/80 94 Intake and Output 09/19/18 09/20/18 09/20/18 23:59 07:59 15:59 Intake Total 1300 / 2935 260 / 1210 950 / 1210 Output Total 0 / 2200 1300 / 1500 200 / 1500 Balance 1300 / 735 -1040 / -290 750 / -290 Intake: IV Fluids 1300 / 2875 200 / 1150 950 / 1150 0.9 % Sodium Chloride 1,000 ML 1000 / 1000 950 / 950 @ 100 mls/hr IVC .Q10H [facility] Rx#: [id number] Ofirmev 1,000 mg/100 ml 1,000 200 / 300 100 / 100 mg In 100 ml @ 400 mls/hr IVPB Q6HR [facility] Rx#:[id number] Zosyn 3.375 GM In 0.9 % Sodium 100 / 300 100 / 100 Chloride (Mini-Bag +) 100 ML @ 25 mls/hr IVPB Q8HR [facility] Rx#: [id number] Oral 0 / 60 60 / 60 Output: Catheter 0 / 725 650 / 700 50 / 700 Gastric Drainage 0 / 825 650 / 800 150 / 800 Other: Meal npo Weight 93.5 kg Blood Glucose* 133 140 136 Patient Weight 09/20/18 23:59 Weight 93.5 kg - Labs 09/20/18 11:34 09/19/18 05:41 Diabetes panel 09/20/18 Range/Units 11:34 Hemoglobin A1c 6.8 H ( - 5.6) % - Attending Attestation I have personally performed a face to face evaluation on this patient. I have reviewed and agree with the care plan. History and Exam by me shows: The patient is seen and evaluated on morning rounds with the acute care surgery team. The patient is not pursuing pulmonary toilet aggressively. She likely h as atelectasis resulting in tachycardia and hypoxia. We will encourage her to continue to use incentive spirometer and Acapella. Chest x-ray is ordered. We will watch closely for any signs of worsening respiratory failure. Very few bowel sounds. No bowel movement yet. Continue nasogastric tube. Robert Goyal MD FACS
[2018-09-20 12:07] LABS: Basophils % 0.1 %; Eosinophils % 0.1 %; Hemoglobin 7.4 g/dL (11.5-15.4); Immature Granulocytes % 0.5 % (0-4); Lymphocytes % 9.6 %; Mean Corpuscular HGB Conc 29.6 g/dL (31.6-35.5); Mean Corpuscular Hemoglobin 24.4 pg (28.0-33.3); Mean Corpuscular Volume 82.5 fL (83.0-100.0); Mean Platelet Volume 9.7 fL (9.4-12.4); Monocytes # 0.9 K/mcL (0.0-1.3); Monocytes % 8.7 %; Neutrophils # 8.5 K/mcL (1.6-8.9); Platelet Count 352 K/mcL (140-400); Red Blood Count 3.03 M/mcL (3.82-4.97); Red Cell Distribution Width 19.9 % (11.5-14.5); White Blood Count 10.5 K/mcL (4.3-11.1)
[2018-09-20 12:16] LABS: Estimated Average Glucose 148 mg/dl
[2018-09-20] MEDS: Insulin LISPRO 300 UNITS/3 ML VIAL SQ SCH ×2 (12:21→17:17)
[2018-09-20 12:31] LABS: Calcium 8.6 mg/dL (8.6-10.3); Magnesium 1.7 mg/dL (1.6-2.6); Phosphorous 4.3 mg/dL (2.7-4.5); Potassium 3.8 mEq/L (3.5-5.1)
--- NOTE | 2018-09-20 13:49 | Electrocardiograph Report ---
[place] [address] Test Date: 2018-09-20 Pat Name: Kathy Dominguez Department: 115 Room: 3A36 Gender: F Manager [employer]: : 1965 Requested By: Kelsey De Paz Order Number: [id number] Reading MD: Devon Jordan Measurements Intervals Anza Rate: 106 P: VT: 0 QRS: 10 QRSD: 106 T: 33 QT: 329 QTc: 391 Interpretive Statements SINUS TACHYCARDIA Electronically Signed On 09-20-2018 13:47:34 EDT by Devon Jordan
--- NOTE | 2018-09-20 13:59 | Electrocardiograph Report ---
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
[2018-09-20] MEDS: Ondansetron 4 MG/2 ML VIAL IVP PRN ×2 (17:17→23:18)
[2018-09-21] MEDS: Insulin LISPRO 300 UNITS/3 ML VIAL SQ SCH ×4 (00:28→17:06)
[2018-09-21] MEDS: Ipratropium/Albuterol Neb 3 ML IH SCH ×7 (00:40→23:47)
[2018-09-21] MEDS: *HR* Promethazine 25 MG/ML VIAL IVP PRN (03:25)
[2018-09-21] MEDS: Acetaminophen IV 1,000 MG/100 ML INFUS..BTL IVPB SCH ×4 (05:24→23:10)
[2018-09-21] MEDS: *HR* Enoxaparin 30 MG/0.3 ML SYRINGE SQ SCH (05:26)
[2018-09-21 05:28] LABS: Basophils % 0.2 %; Immature Granulocytes % 0.6 % (0-4)
[2018-09-21] MEDS: 0.9 % Sodium Chloride 1,000 ML IVC SCH ×2 (05:29→16:08)
[2018-09-21 05:30] LABS: Eosinophils # 0.1 K/mcL (0.0-0.6); Eosinophils % 0.4 %; Hematocrit 24.1 % (35.3-44.9); Hemoglobin 7.1 g/dL (11.5-15.4); Lymphocytes # 1.3 K/mcL (0.6-4.6); Lymphocytes % 10.5 %; Mean Corpuscular HGB Conc 29.5 g/dL (31.6-35.5); Mean Corpuscular Hemoglobin 24.3 pg (28.0-33.3); Mean Corpuscular Volume 82.5 fL (83.0-100.0); Mean Platelet Volume 9.5 fL (9.4-12.4); Monocytes # 0.8 K/mcL (0.0-1.3); Monocytes % 6.3 %; Platelet Count 361 K/mcL (140-400); Red Blood Count 2.92 M/mcL (3.82-4.97); Red Cell Distribution Width 19.7 % (11.5-14.5); White Blood Count 12.5 K/mcL (4.3-11.1)
[2018-09-21] MEDS: Ondansetron 4 MG/2 ML VIAL IVP PRN (05:30)
[2018-09-21 05:45] LABS: Calcium 8.6 mg/dL (8.6-10.3); Magnesium 1.9 mg/dL (1.6-2.6); Neutrophils # 10.3 K/mcL (1.6-8.9); Phosphorous 3.9 mg/dL (2.7-4.5); Potassium 3.4 mEq/L (3.5-5.1)
[2018-09-21 06:07] LABS: Anisocytosis 1+ (Not Present); Hypochromasia Present (Not Present); Platelet Estimate Normal (Normal)
[2018-09-21] MEDS: Piperacillin/Tazobactam 3.375 GM in 0.9 % Sodium Chloride Mini Bag 100 ML IVPB SCH ×3 (09:01→23:14)
[2018-09-21] MEDS: Pantoprazole 40 MG VIAL IVP SCH ×2 (09:01→20:22)
--- NOTE | 2018-09-21 10:27 | AcuteCareSurgery Progress Note ---
Date of Encounter: 09/21/18 Time of Encounter: 10:24 - Assessment and Plan (1) Small bowel obstruction Current Visit: Yes Status: Acute 52F POD #3 s/p open right selina 2/2 obstructing cecal mass with concern for microperforation; still on IV abx; NG tube in place; atelectasis NPO cont ng tube to LIWS pulm toileting ambulate cont IV abx cont with current pain regimen Subjective Patient reports: no new complaints, feels better, still having pain, pain is less, afebrile Objective Vital Signs - Last 8 Hours Temp Pulse Resp BP Pulse Ox 09/21/18 09:49 97.4 F L 108 17 161/93 91 09/21/18 08:28 94 09/21/18 07:22 18 95 09/21/18 06:27 97.7 F 87 14 156/85 95 09/21/18 05:11 97.6 F 101 14 155/88 89 09/21/18 03:50 14 92 Intake and Output 09/20/18 09/21/18 09/21/18 23:59 07:59 15:59 Intake Total 1200 / 2610 1300 / 1300 Output Total 550 / 2225 700 / 1400 700 / 1400 Balance 650 / 385 600 / -100 -700 / -100 Intake: IV Fluids 1200 / 2550 1300 / 1300 0.9 % Sodium Chloride 1,000 ML 1000 / 1950 1000 / 1000 @ 100 mls/hr IVC .Q10H [facility] Rx#: [id number] Ofirmev 1,000 mg/100 ml 1,000 100 / 300 200 / 200 mg In 100 ml @ 400 mls/hr IVPB Q6HR [facility] Rx#:[id number] Zosyn 3.375 GM In 0.9 % Sodium 100 / 300 100 / 100 Chloride (Mini-Bag +) 100 ML @ 25 mls/hr IVPB Q8HR [facility] Rx#: [id number] Oral 0 / 0 Output: Urine 300 / 300 300 / 600 300 / 600 Gastric Tube Lavage Amount 250 / 250 400 / 400 Right Nare 250 / 250 400 / 400 Gastric Drainage 400 / 400 Other: Meal npo npo Blood Glucose* 133 97 - General physical appearance no distress - Respiratory normal expansion, normal respiratory effort - Cardiovascular Cardiovascular exam: Present: RRR - Abdomen Abdomen: Present: soft, tender (appropriately tender) - Incision Incision: Present: clean and dry, intact - Neurologic CN 2-12 grossly intact - Psychiatric oriented to time, oriented to person, oriented to place - Labs 09/21/18 05:12 09/21/18 05:12 Diabetes panel 09/20/18 09/20/18 09/21/18 Range/Units 11:34 11:34 05:12 Sodium 141 146 H (136-145) mEq/L Potassium 3.8 3.4 L (3.5-5.1) mEq/L Chloride 109 H 109 H (98-107) mEq/L Carbon Dioxide 22 L 23 (23-29) mEq/L BUN 26 H 23 H (6-20) mg/dL Creatinine 1.32 H 1.25 H (0.60-1.20) mg/dL Glucose 140 H 95 (70-105) mg/dL Hemoglobin A1c 6.8 H ( - 5.6) % Calcium 8.6 8.6 (8.6-10.3) mg/dL Calcium panel 09/20/18 09/21/18 Range/Units 11:34 05:12 Calcium 8.6 8.6 (8.6-10.3) mg/dL Phosphorus 4.3 3.9 (2.7-4.5) mg/dL Pituitary panel 09/20/18 09/21/18 Range/Units 11:34 05:12 Sodium 141 146 H (136-145) mEq/L Potassium 3.8 3.4 L (3.5-5.1) mEq/L Chloride 109 H 109 H (98-107) mEq/L Carbon Dioxide 22 L 23 (23-29) mEq/L BUN 26 H 23 H (6-20) mg/dL Creatinine 1.32 H 1.25 H (0.60-1.20) mg/dL Glucose 140 H 95 (70-105) mg/dL Calcium 8.6 8.6 (8.6-10.3) mg/dL Adrenal panel 09/20/18 09/21/18 Range/Units 11:34 05:12 Sodium 141 146 H (136-145) mEq/L Potassium 3.8 3.4 L (3.5-5.1) mEq/L Chloride 109 H 109 H (98-107) mEq/L Carbon Dioxide 22 L 23 (23-29) mEq/L BUN 26 H 23 H (6-20) mg/dL Creatinine 1.32 H 1.25 H (0.60-1.20) mg/dL Glucose 140 H 95 (70-105) mg/dL Calcium 8.6 8.6 (8.6-10.3) mg/dL Consult Discharge Plan - Plan Referrals: Blaise Meyer MD [Primary Care Provider] -
[2018-09-22] MEDS: Insulin LISPRO 300 UNITS/3 ML VIAL SQ SCH ×4 (01:17→18:07)
[2018-09-22] MEDS: 0.9 % Sodium Chloride 1,000 ML IVC SCH (02:30)
[2018-09-22] MEDS: *HR* Promethazine 25 MG/ML VIAL IVP PRN ×2 (02:30→10:56)
[2018-09-22] MEDS: Ipratropium/Albuterol Neb 3 ML IH SCH ×6 (04:06→20:30)
[2018-09-22] MEDS: Acetaminophen IV 1,000 MG/100 ML INFUS..BTL IVPB SCH ×3 (05:07→17:26)
[2018-09-22] MEDS: *HR* Enoxaparin 30 MG/0.3 ML SYRINGE SQ SCH (05:11)
[2018-09-22 07:20] LABS: BUN/Creatinine Ratio 18 (6-26); Blood Urea Nitrogen 19 mg/dL (6-20); Calcium 8.4 mg/dL (8.6-10.3); Carbon Dioxide 20 mEq/L (23-29); Chloride 110 mEq/L (98-107); Glucose 68 mg/dL (70-105); Osmolality,Calculated 301 (280-300); Phosphorous 4.4 mg/dL (2.7-4.5); Potassium 3.3 mEq/L (3.5-5.1); Sodium 145 mEq/L (136-145); eGFR For African Americans > 60 (> 60); eGFR For Non-African Americans 55 (> 60)
[2018-09-22] MEDS: Pantoprazole 40 MG VIAL IVP SCH ×2 (07:55→20:21)
[2018-09-22] MEDS: Ondansetron 4 MG/2 ML VIAL IVP PRN (07:55)
[2018-09-22] MEDS: Piperacillin/Tazobactam 3.375 GM in 0.9 % Sodium Chloride Mini Bag 100 ML IVPB SCH ×2 (07:55→17:27)
[2018-09-22 09:03] LABS: Hematocrit 24.1 % (35.3-44.9); Hemoglobin 7.3 g/dL (11.5-15.4); Red Blood Count 2.98 M/mcL (3.82-4.97); White Blood Count 14.7 K/mcL (4.3-11.1)
[2018-09-22 09:04] LABS: Basophils % 0.1 %; Eosinophils # 0.1 K/mcL (0.0-0.6); Eosinophils % 0.4 %; Immature Granulocytes % 0.9 % (0-4); Lymphocytes % 13.7 %; Mean Corpuscular HGB Conc 30.3 g/dL (31.6-35.5); Mean Corpuscular Hemoglobin 24.5 pg (28.0-33.3); Mean Corpuscular Volume 80.9 fL (83.0-100.0); Monocytes # 0.6 K/mcL (0.0-1.3); Neutrophils # 11.9 K/mcL (1.6-8.9); Platelet Count 342 K/mcL (140-400); Red Cell Distribution Width 19.5 % (11.5-14.5); Segmented Neutrophils % 80.9 %
--- NOTE | 2018-09-22 09:33 | AcuteCareSurgery Progress Note ---
Date of Encounter: 09/22/18 Time of Encounter: 07:30 - Assessment and Plan (1) Hypertension Current Visit: Yes Status: Chronic Restart home meds when pt is PO. VS q shift. Qualifiers: Hypertension type: essential hypertension Qualified Code(s): I10 - Essential (primary) hypertension (2) Morbid obesity Current Visit: Yes Status: Chronic (3) Colon obstruction Current Visit: Yes Status: Acute Due to obtruction cecal mass. S/P right hemicolectomy with ileocecal anastomosis for presumed malignant colon mass at cecum. Maintain NGT until + flatus. Increase activity. (4) Colon cancer Current Visit: Yes Status: Acute Cecal mass +adenocarcinoma with / LN positive and perforation of colon mass. Qualifiers: Qualified Code(s): C18.2 - Malignant neoplasm of ascending colon Subjective Patient reports: no new complaints, feels better, still having pain, pain is less, no flatus, no bowel movement, afebrile Narrative: NGT/NPO Objective Vital Signs - Last 8 Hours Temp Pulse Resp BP Pulse Ox 09/22/18 07:48 16 93 09/22/18 07:45 92 09/22/18 07:07 98.0 F 74 16 165/94 95 09/22/18 04:50 97.7 F 92 16 175/100 94 09/22/18 04:07 16 93 Intake and Output 09/21/18 09/22/18 09/22/18 23:59 07:59 15:59 Intake Total 200 / 2700 1300 / 1300 Output Total 1300 / 2850 1200 / 1200 Balance -1100 / -150 100 / 100 Intake: IV Fluids 200 / 2700 1300 / 1300 0.9 % Sodium Chloride 1,000 ML 1000 / 1000 @ 100 mls/hr IVC .Q10H [place] Rx#: [id number] Ofirmev 1,000 mg/100 ml 1,000 100 / 400 200 / 200 mg In 100 ml @ 400 mls/hr IVPB Q6HR [place] Rx#:[id number] Zosyn 3.375 GM In 0.9 % Sodium 100 / 300 100 / 100 Chloride (Mini-Bag +) 100 ML @ 25 mls/hr IVPB Q8HR [place] Rx#: [id number] Oral 0 / 0 0 / 0 Output: Urine 900 / 1650 800 / 800 Gastric Tube Lavage Amount 400 / 400 Right Nare 400 / 400 Gastric Drainage 400 / 800 Other: # Voids 1 Weight 94.6 kg Blood Glucose* 77 71 Patient Weight 09/22/18 23:59 Weight 94.6 kg - General physical appearance no distress, no pain, obese - Eyes PERRL, normal ocular movement - ENT no congestion, dry mucosa - Neck Neck exam: trachea midline, no venous distension - Respiratory normal respiratory effort, clear to auscultation (course BS resolved), other - Cardiovascular Cardiovascular exam: Present: RRR. Absent: JVD - Abdomen Abdomen: Present: bowel sounds present, soft, tender Abdominal Tenderness: diffusely Additional Comments: NGT in place - Incision Incision: Present: clean and dry, intact - Neurologic CN 2-12 grossly intact, normal coordination - Musculoskeletal normal posture - Psychiatric oriented to time, oriented to person, oriented to place - Labs 09/22/18 08:28 09/22/18 06:07 Diabetes panel 09/22/18 Range/Units 06:07 Sodium 145 (136-145) mEq/L Potassium 3.3 L (3.5-5.1) mEq/L Chloride 110 H (98-107) mEq/L Carbon Dioxide 20 L (23-29) mEq/L BUN 19 (6-20) mg/dL Creatinine 1.05 (0.60-1.20) mg/dL Glucose 68 L (70-105) mg/dL Calcium 8.4 L (8.6-10.3) mg/dL Calcium panel 09/22/18 Range/Units 06:07 Calcium 8.4 L (8.6-10.3) mg/dL Phosphorus 4.4 (2.7-4.5) mg/dL Pituitary panel 09/22/18 Range/Units 06:07 Sodium 145 (136-145) mEq/L Potassium 3.3 L (3.5-5.1) mEq/L Chloride 110 H (98-107) mEq/L Carbon Dioxide 20 L (23-29) mEq/L BUN 19 (6-20) mg/dL Creatinine 1.05 (0.60-1.20) mg/dL Glucose 68 L (70-105) mg/dL Calcium 8.4 L (8.6-10.3) mg/dL Adrenal panel 09/22/18 Range/Units 06:07 Sodium 145 (136-145) mEq/L Potassium 3.3 L (3.5-5.1) mEq/L Chloride 110 H (98-107) mEq/L Carbon Dioxide 20 L (23-29) mEq/L BUN 19 (6-20) mg/dL Creatinine 1.05 (0.60-1.20) mg/dL Glucose 68 L (70-105) mg/dL Calcium 8.4 L (8.6-10.3) mg/dL Consult Discharge Plan - Plan Referrals: Blaise Meyer MD [Primary Care Provider] -
[2018-09-22] MEDS ORDERED: Potassium Chloride 40 MEQ, Lidocaine 1% 2 ML in D5% in Water 500 ML IVPB ONE (12:08)
[2018-09-22] MEDS: amLODIPine 5 MG TABLET PO SCH (14:19)
[2018-09-23] MEDS: Ipratropium/Albuterol Neb 3 ML IH SCH ×7 (00:05→23:52)
[2018-09-23] MEDS: Insulin LISPRO 300 UNITS/3 ML VIAL SQ SCH ×5 (00:24→20:55)
[2018-09-23] MEDS: Piperacillin/Tazobactam 3.375 GM in 0.9 % Sodium Chloride Mini Bag 100 ML IVPB SCH ×4 (00:29→23:57)
[2018-09-23] MEDS: Acetaminophen IV 1,000 MG/100 ML INFUS..BTL IVPB SCH ×3 (00:30→12:16)
[2018-09-23 04:50] LABS: Basophils % 0.2 %; Eosinophils # 0.1 K/mcL (0.0-0.6); Eosinophils % 0.6 %; Hematocrit 20.8 % (35.3-44.9); Hemoglobin 6.4 g/dL (11.5-15.4); Immature Granulocytes % 0.7 % (0-4); Lymphocytes # 1.7 K/mcL (0.6-4.6); Lymphocytes % 15.1 %; Mean Corpuscular HGB Conc 30.8 g/dL (31.6-35.5); Mean Corpuscular Hemoglobin 24.7 pg (28.0-33.3); Mean Corpuscular Volume 80.3 fL (83.0-100.0); Mean Platelet Volume 9.3 fL (9.4-12.4); Monocytes # 0.6 K/mcL (0.0-1.3); Monocytes % 5.5 %; Platelet Count 336 K/mcL (140-400); Red Blood Count 2.59 M/mcL (3.82-4.97); Red Cell Distribution Width 19.3 % (11.5-14.5); Segmented Neutrophils % 77.9 %; White Blood Count 11.5 K/mcL (4.3-11.1)
[2018-09-23 05:02] LABS: BUN/Creatinine Ratio 18 (6-26); Blood Urea Nitrogen 19 mg/dL (6-20); Carbon Dioxide 22 mEq/L (23-29); Chloride 111 mEq/L (98-107); Glucose 73 mg/dL (70-105); Osmolality,Calculated 293 (280-300); Potassium 3.2 mEq/L (3.5-5.1); Sodium 141 mEq/L (136-145); eGFR For African Americans > 60 (> 60); eGFR For Non-African Americans 55 (> 60)
[2018-09-23] MEDS: *HR* Enoxaparin 30 MG/0.3 ML SYRINGE SQ SCH (05:39)
--- NOTE | 2018-09-23 08:20 | AcuteCareSurgery Progress Note ---
Date of Encounter: 09/23/18 Time of Encounter: 08:19 - Assessment and Plan (1) Colon cancer Current Visit: Yes Status: Acute The patient is postop day 5 from a right colectomy. Admits to mild nausea but states that this is chronic in nature. She has been up and ambulating with the assistance of physical therapy. Continue PT. Will advance diet to full liquids. Qualifiers: Colon location: ascending Qualified Code(s): C18.2 - Malignant neoplasm of ascending colon Subjective Patient reports: other (Patient states that she has had a BM and flatus. Admits to nausea but states that has been present 'for years.') Objective Vital Signs - Last 8 Hours Temp Pulse Resp BP Pulse Ox 09/23/18 07:10 15 97 09/23/18 06:41 98.1 F 99 15 171/89 97 09/23/18 03:41 98.8 F 81 18 149/80 95 09/23/18 03:13 17 96 Intake and Output 09/22/18 09/23/18 09/23/18 23:59 07:59 15:59 Intake Total 320 / 2770 400 / 400 Output Total 1075 / 3125 200 / 200 Balance -755 / -355 200 / 200 Intake: IV Fluids 200 / 2625 300 / 300 Ofirmev 1,000 mg/100 ml 1,000 100 / 400 200 / 200 mg In 100 ml @ 400 mls/hr IVPB Q6HR [place] Rx#:[id number] Zosyn 3.375 GM In 0.9 % Sodium 100 / 300 100 / 100 Chloride (Mini-Bag +) 100 ML @ 25 mls/hr IVPB Q8HR [facility] Rx#: [id number] Oral 120 / 145 100 / 100 Output: Urine 1075 / 2375 200 / 200 Other: Stool Size Small Stool Consistency loose Stool Color Brown Weight 95.7 kg Blood Glucose* 81 77 Patient Weight 09/23/18 23:59 Weight 95.7 kg - General physical appearance well nourished, no distress - Respiratory normal expansion, normal respiratory effort - Abdomen Abdomen: Present: soft, tender (mild incisional tenderness. Dresssing in place. No erythema.) - Labs 09/23/18 04:29 09/23/18 04:29 Diabetes panel 09/23/18 Range/Units 04:29 Sodium 141 (136-145) mEq/L Potassium 3.2 L (3.5-5.1) mEq/L Chloride 111 H (98-107) mEq/L Carbon Dioxide 22 L (23-29) mEq/L BUN 19 (6-20) mg/dL Creatinine 1.05 (0.60-1.20) mg/dL Glucose 73 (70-105) mg/dL Calcium 8.0 L (8.6-10.3) mg/dL Calcium panel 09/23/18 Range/Units 04:29 Calcium 8.0 L (8.6-10.3) mg/dL Pituitary panel 09/23/18 Range/Units 04:29 Sodium 141 (136-145) mEq/L Potassium 3.2 L (3.5-5.1) mEq/L Chloride 111 H (98-107) mEq/L Carbon Dioxide 22 L (23-29) mEq/L BUN 19 (6-20) mg/dL Creatinine 1.05 (0.60-1.20) mg/dL Glucose 73 (70-105) mg/dL Calcium 8.0 L (8.6-10.3) mg/dL Adrenal panel 09/23/18 Range/Units 04:29 Sodium 141 (136-145) mEq/L Potassium 3.2 L (3.5-5.1) mEq/L Chloride 111 H (98-107) mEq/L Carbon Dioxide 22 L (23-29) mEq/L BUN 19 (6-20) mg/dL Creatinine 1.05 (0.60-1.20) mg/dL Glucose 73 (70-105) mg/dL Calcium 8.0 L (8.6-10.3) mg/dL Consult Discharge Plan - Plan Instructions: Colorectal Cancer (GEN), Colectomy (DC) Additional Instructions: General Surgical Discharge Instructions 1. No pushing, pulling, or lifting greater than 15 lbs for 6 weeks from the date of surgery. 2. You may change your dressings daily or leave open to air and you shower beginning today, but no tub baths, soaking, or swimming for 2 weeks. 3. No driving until cleared to do so per rehab and then you may resume driving when you are off narcotics and are safe to react in a car. 4. Take ibuprofen every 8 hours for discomfort. If this does not relieve discomfort, you may take the as needed Roxicodone or you may take 1000 mg acetaminophen. Eat a small snack with pain medication as this will help reduce the risk of nausea. Take narcotics as directed. Do not take more narcotics then directed and do not share your narcotics with any other person. Do not drink alcohol while on narcotics. You can take the Zofran/ondansetron if needed for nausea or with a dose of narcotics to prevent nausea. 5. Take stool softeners (Colace) or a water based laxative (Miralax) while taking narcotics. You may hold for loose stools. 6. Report any fevers greater than 100.5F, increase abdominal discomfort, drainage that looks like pus, increased redness or pain at the surgical site, or any vomiting. 7. Report any pain in the calves, shortness of breath, or rapid heartbeat. 8. Follow-up in the office as directed. 9. If you were prescribed antibiotics, do not stop them without talking to your provider. 10. Follow-up in the cancer center as directed. Referrals: [facility] [Provider Group] (2 weeks re: new colon cancer diagnosis) Blaise Meyer MD [Primary Care Provider] - Bernabe Silva MD [Non-Partnered Physician] - 10/12/18 4:15 pm Prescriptions: OxyCODONE Immed Rel [Roxicodone 5 MG] 5 mg PO Q6HR PRN 3 Days #12 tablet PRN Reason: Severe Pain
[2018-09-23] MEDS: amLODIPine 5 MG TABLET PO SCH (09:13)
[2018-09-23] MEDS: Pantoprazole 40 MG VIAL IVP SCH ×2 (09:14→21:02)
[2018-09-23] MEDS ORDERED: Potassium Chloride 40 MEQ, Lidocaine 1% 2 ML in D5% in Water 500 ML IVPB ONE (13:18)
[2018-09-23] MEDS ORDERED: *HR* OxyCODONE/APAP 5/325 TABLET PO PRN (13:18)
--- NOTE | 2018-09-23 13:20 | Discharge Summary ---
<BaldevKelsey Nidia - Last Filed: 09/26/18 09:26> Date of Encounter: 09/26/18 Time of Encounter: 09:26 - Discharge Diagnosis (1) Small bowel obstruction Priority: Primary Status: Resolved (2) Hypertension Priority: Secondary Status: Chronic Qualifiers: Hypertension type: essential hypertension Qualified Code(s): I10 - Essential (primary) hypertension (3) Morbid obesity Priority: Secondary Status: Chronic (4) DVT prophylaxis Priority: Secondary Status: Acute (5) Tobacco abuse Priority: Secondary Status: Chronic (6) Neoplasm causing mass effect on adjacent structures Priority: Secondary Status: Acute (7) Tachycardia Priority: Secondary Status: Acute (8) Hypoxia Priority: Secondary Status: Acute (9) Anemia Priority: Secondary Status: Acute Comments: s/p transfusion PRBC. No evidence for acute bleed. Qualifiers: Anemia type: iron deficiency Iron deficiency anemia type: unspecified iron deficiency Qualified Code(s): D50.9 - Iron deficiency anemia, unspecified General Surgery Exam Initial Vital Signs Temp Pulse Resp BP Pulse Ox 98.5 F 79 18 93/56 95 09/18/18 08:04 09/18/18 08:04 09/18/18 08:04 09/18/18 08:04 09/18/18 08:04 - General physical appearance well nourished, no distress, no pain - Neck trachea midline - Respiratory other (Decreased clear) - Cardiovascular Cardiovascular exam: Present: RRR - Abdomen Abdomen general surgery: Present: bowel sounds present, soft, tender (Expected postoperative) - Incision Incision: Present: clean and dry, intact - Integumentary Integumentary general surgery: Present: warm and dry - Neurologic Present: normal sensation - Musculoskeletal Present: normal posture - Psychiatric Psychiatric general surgery: Present: A&Ox3 - Hospital Course Hospital course: Ms. Dominguez is a 52 year old female presented on 09/18/2018 with findings of a small bowel obstruction. She was diffusely tender and it was suspected that she had a microperforation and she was therefore taken to the operating room on the same day where she underwent an open right hemicolectomy by Dr. Silva. Her final pathology was consistent with adenocarcinoma with metastatic adenocarcinoma involving one of 16 lymph nodes; Pathologic Stage Classification: [id number] a follow-up will be scheduled with the [facility]. Her hospital course was complicated by acute respiratory/hypoxia secondary to atelectasis. She was treated with aggressive pulmonary toileting including duonebs treatments as well as acapella to which she reponded very well. She also had an acute kidney injury which has resolved. She is suspected to have underlying COPD given her 36 year smoking history. She was transfused 1 u PRBC for anemia (likely chronic given no evidence for acute bleed). She is participating with physical and occupational therapy, tolerating a diet without nausea or vomiting, vital signs are stable, is afebrile, and she is having bowel function. We will begin discharge planning to [facility] with a follow-up in the office approximately 2 weeks. Time spent discussing smoking cessation with patient: 3 to 10 minutes - Time Spent with Patient Total time spent providing and/or coordinating discharge services: Less than 30 minutes - Discharge Medications Prescriptions: New OxyCODONE Immed Rel [Roxicodone 5 MG] 5 mg PO Q6HR PRN 3 Days #12 tablet PRN Reason: Severe Pain Ibuprofen [Motrin] 600 mg PO Q8HR PRN tablet PRN Reason: Mild Pain Docusate [Colace] 100 mg PO BID capsule Polyethylene Glycol 3350 [MiraLAX] 17 gm PO DAILY PRN powd.pack PRN Reason: Constipation Continued Aspirin Enteric Coated [Aspirin EC] 81 mg PO DAILY Gabapentin [Neurontin] 300 mg PO TID amLODIPine [Norvasc] 5 mg PO DAILY Pravastatin Sodium [Pravachol] 40 mg PO DAILY Atenolol [Tenormin] 50 mg PO BID Pantoprazole Sodium [Protonix] 40 mg PO DAILY Cyclobenzaprine [Flexeril] 10 mg PO BID PRN PRN Reason: Muscle Spasm Magnesium Oxide [Mag-Ox] 400 mg PO DAILY Lisinopril-HCTZ 20-12.5 [Prinzide 20-12.5] 20 - 25 mg PO DAILY Allopurinol [Zyloprim 300 MG] 300 mg PO DAILY Ferrous Sulfate [Iron] 650 mg PO DAILY Linagliptin [Tradjenta] 5 mg PO DAILY Potassium Chloride [Klor-Con 10] 10 meq PO BID Home Medications: Aspirin Enteric Coated [Aspirin EC] 81 mg PO DAILY 05/12/18 [History] Atenolol [Tenormin] 50 mg PO BID 05/12/18 [History] Cyclobenzaprine [Flexeril] 10 mg PO BID PRN 05/12/18 [History] Gabapentin [Neurontin] 300 mg PO TID 05/12/18 [History] Magnesium Oxide [Mag-Ox] 400 mg PO DAILY 05/12/18 [History] Pantoprazole Sodium [Protonix] 40 mg PO DAILY 05/12/18 [History] Pravastatin Sodium [Pravachol] 40 mg PO DAILY 05/12/18 [History] amLODIPine [Norvasc] 5 mg PO DAILY 05/12/18 [History] Lisinopril-HCTZ 20-12.5 [Prinzide 20-12.5] 20 - 25 mg PO DAILY 08/28/18 [History] Allopurinol [Zyloprim 300 MG] 300 mg PO DAILY 09/20/18 [History] Ferrous Sulfate [Iron] 650 mg PO DAILY 09/20/18 [History] Linagliptin [Tradjenta] 5 mg PO DAILY 09/20/18 [History] Potassium Chloride [Klor-Con 10] 10 meq PO BID 09/20/18 [History] Docusate [Colace] 100 mg PO BID capsule 09/23/18 [Rx] Ibuprofen [Motrin] 600 mg PO Q8HR PRN tablet 09/23/18 [Rx] OxyCODONE Immed Rel [Roxicodone 5 MG] 5 mg PO Q6HR PRN 3 Days #12 tablet 09/23/18 [Rx] Polyethylene Glycol 3350 [MiraLAX] 17 gm PO DAILY PRN powd.pack 09/23/18 [Rx] Allergies/Adverse Reactions: Allergy/AdvReac Type Severity Reaction Status Date / Time ketorolac [From Toradol] Allergy Irritable Verified 09/20/18 11:01 Carbinoxamine [From Rondec] AdvReac Vomiting Verified 09/20/18 11:01 pseudoephedrine [From Rondec] AdvReac Vomiting Verified 09/20/18 11:01 Date of admission: 09/18/18 09:22 Primary care physician: Blaise Meyer MD Consults: 09/18/18 11:19 Consult to Equipment Engineer [CONS] Routine Reason for SW Consult: cecal mass, new diagnosis 09/19/18 08:46 Consult to Respiratory Therapy [CONS] Stat Reason for Consult: Aggressive pulm toileting; Add Acapella Time Notified: 08:47 Call Completed: No 09/20/18 09:05 Consult to Occupational Therapy [CONS] Routine Comment: Evaluate, develop and implement POC Reason for Consult: deconditioning, weakness Does patient have active BEDREST order?: No Is patient medically & hemodynamically stable?: Yes Patient assessed for mobility or mobilized this visit?: No Consult to Physical Therapy [CONS] Routine Comment: Evaluate, develop and implement POC Reason for Consult: deconditioning, weakness Does patient have active BEDREST order?: No Is patient medically & hemodynamically stable?: Yes Patient assessed for mobility or mobilized this visit?: No Discharging clinician: Robert De Paz) Anticipated date of discharge: 09/26/18 Labs on day of discharge: Labs from last 24 hours 09/23/18 09/23/18 09/22/18 04:29 04:29 17:32 WBC 11.5 H RBC 2.59 L Hgb 6.4 L Hct 20.8 L MCV 80.3 L MCH 24.7 L MCHC 30.8 L RDW 19.3 H Plt Count 336 MPV 9.3 L Immature Gran % 0.7 Seg Neutrophils % 77.9 Lymphocytes % 15.1 Monocytes % 5.5 Eosinophils % 0.6 Basophils % 0.2 Neutrophils # 9.0 H Lymphocytes # 1.7 Monocytes # 0.6 Eosinophils # 0.1 Basophils # 0.0 Sodium 141 Potassium 3.2 L Chloride 111 H Carbon Dioxide 22 L BUN 19 Creatinine 1.05 Est GFR ( Amer) > 60 Est GFR (Non-Af Amer) 55 L BUN/Creatinine Ratio 18 Glucose 73 POC Glucose 88 Calculated Osmolality 293 Calcium 8.0 L 09/22/18 09/22/18 09/22/18 14:19 11:59 05:30 WBC RBC Hgb Hct MCV MCH MCHC RDW Plt Count MPV Immature Gran % Seg Neutrophils % Lymphocytes % Monocytes % Eosinophils % Basophils % Neutrophils # Lymphocytes # Monocytes # Eosinophils # Basophils # Sodium Potassium Chloride Carbon Dioxide BUN Creatinine Est GFR ( Amer) Est GFR (Non-Af Amer) BUN/Creatinine Ratio Glucose POC Glucose 68 L 68 L 71 Calculated Osmolality Calcium 09/22/18 00:02 WBC RBC Hgb Hct MCV MCH MCHC RDW Plt Count MPV Immature Gran % Seg Neutrophils % Lymphocytes % Monocytes % Eosinophils % Basophils % Neutrophils # Lymphocytes # Monocytes # Eosinophils # Basophils # Sodium Potassium Chloride Carbon Dioxide BUN Creatinine Est GFR ( Amer) Est GFR (Non-Af Amer) BUN/Creatinine Ratio Glucose POC Glucose 78 Calculated Osmolality Calcium - Impressions ITS Impressions Abdomen/Pelvis CT 09/18/18 08:05 IMPRESSION: Heterogeneous cecal mass measuring 5.0 x 4.7 x 5.6 cm consistent with a neoplastic process until proven otherwise. This results in a small bowel obstruction at the level of the ileocecal valve. Mesenteric lymphadenopathy adjacent to the cecum likely representing michelle metastatic disease. Indeterminate but likely benign liver lesion. Given the above findings, MRI of the abdomen is recommended for further evaluation. The above findings were discussed with Dr. Escalante at 8:50 a.m. on 09/18/2018. D/ / 09/18/2018 08:59:[address] MD / tip Interpreting Provider: Jose Lane MD Chest X-Ray 09/20/18 11:25 IMPRESSION: 1. Low lung volumes with bibasilar airspace opacities, likely atelectasis. 2. Small bilateral pleural effusions. 3. Mild elevation of the right mid diaphragm with no identifiable cause. D/ / Gregorio Oliver MD / Gregorio Olvier MD Interpreting Provider: Gregorio Oliver MD - Patient Status Disposition: Transfer Inpatient Rehab Fac Condition: Serious Functional capacity at discharge: independent ambulation (with standby) Overall status at discharge: patient is not back to baseline - Discharge Instructions Instructions: Colorectal Cancer (GEN), Colectomy (DC) Follow Up With: Blaise Meyer MD [Primary Care Provider] - Bernabe Silva MD [Non-Partnered Physician] - 10/12/18 4:15 pm [facility] [Provider Group] (2 weeks re: new colon cancer diagnosis) Forms: ED Satisfaction Letter, Work/School Release Additional Instructions: General Surgical Discharge Instructions 1. No pushing, pulling, or lifting greater than 15 lbs for 6 weeks from the date of surgery. 2. You may change your dressings daily or leave open to air and you shower beginning today, but no tub baths, soaking, or swimming for 2 weeks. 3. No driving until cleared to do so per rehab and then you may resume driving when you are off narcotics and are safe to react in a car. 4. Take ibuprofen every 8 hours for discomfort. If this does not relieve discomfort, you may take the as needed Roxicodone or you may take 1000 mg acetaminophen. Eat a small snack with pain medication as this will help reduce the risk of nausea. Take narcotics as directed. Do not take more narcotics then directed and do not share your narcotics with any other person. Do not drink alcohol while on narcotics. You can take the Zofran/ondansetron if needed for nausea or with a dose of narcotics to prevent nausea. 5. Take stool softeners (Colace) or a water based laxative (Miralax) while taking narcotics. You may hold for loose stools. 6. Report any fevers greater than 100.5F, increase abdominal discomfort, drainage that looks like pus, increased redness or pain at the surgical site, or any vomiting. 7. Report any pain in the calves, shortness of breath, or rapid heartbeat. 8. Follow-up in the office as directed. 9. If you were prescribed antibiotics, do not stop them without talking to your provider. 10. Follow-up in the cancer center as directed. - Diet and Activity Activity: as per physical therapy, increase activity as tolerated (with lifiting restrictions) Diet: advance to your usual diet <Robert Goyal - Last Filed: 09/26/18 11:59> Date of Encounter: 09/26/18 General Surgery Exam Initial Vital Signs Temp Pulse Resp BP Pulse Ox 98.5 F 79 18 93/56 95 09/18/18 08:04 09/18/18 08:04 09/18/18 08:04 09/18/18 08:04 09/18/18 08:04 - Hospital Course Hospital course: Ms. Dominguez is a 52 year old female - Time Spent with Patient Total time spent providing and/or coordinating discharge services: Date of admission: 09/18/18 09:22 Primary care physician: Blaise Meyer MD Consults: 09/18/18 11:19 Consult to Equipment Engineer [CONS] Routine Reason for SW Consult: cecal mass, new diagnosis 09/19/18 08:46 Consult to Respiratory Therapy [CONS] Stat Reason for Consult: Aggressive pulm toileting; Add Acapella Time Notified: 08:47 Call Completed: No 09/20/18 09:05 Consult to Occupational Therapy [CONS] Routine Comment: Evaluate, develop and implement POC Reason for Consult: deconditioning, weakness Does patient have active BEDREST order?: No Is patient medically & hemodynamically stable?: Yes Patient assessed for mobility or mobilized this visit?: No Consult to Physical Therapy [CONS] Routine Comment: Evaluate, develop and implement POC Reason for Consult: deconditioning, weakness Does patient have active BEDREST order?: No Is patient medically & hemodynamically stable?: Yes Patient assessed for mobility or mobilized this visit?: No Labs on day of discharge: Labs from last 24 hours 09/26/18 09/26/18 09/25/18 06:01 06:01 16:47 WBC 12.1 H RBC 3.18 L Hgb 7.9 L D Hct 25.8 L MCV 81.1 L MCH 24.8 L MCHC 30.6 L RDW 18.4 H Plt Count 383 MPV 9.6 Immature Gran % 1.9 Seg Neutrophils % 74.7 Lymphocytes % 15.6 Monocytes % 5.9 Eosinophils % 1.7 Basophils % 0.2 Neutrophils # 9.0 H Lymphocytes # 1.9 Monocytes # 0.7 Eosinophils # 0.2 Basophils # 0.0 Sodium 142 Potassium 3.6 Chloride 109 H Carbon Dioxide 23 BUN 20 Creatinine 1.06 Est GFR ( Amer) > 60 Est GFR (Non-Af Amer) 55 L BUN/Creatinine Ratio 19 Glucose 116 H POC Glucose 143 H Calculated Osmolality 298 Calcium 8.0 L 09/25/18 09/24/18 11:30 20:39 WBC RBC Hgb Hct MCV MCH MCHC RDW Plt Count MPV Immature Gran % Seg Neutrophils % Lymphocytes % Monocytes % Eosinophils % Basophils % Neutrophils # Lymphocytes # Monocytes # Eosinophils # Basophils # Sodium Potassium Chloride Carbon Dioxide BUN Creatinine Est GFR ( Amer) Est GFR (Non-Af Amer) BUN/Creatinine Ratio Glucose POC Glucose 77 124 H Calculated Osmolality Calcium - Impressions ITS Impressions Abdomen/Pelvis CT 09/18/18 08:05 IMPRESSION: Heterogeneous cecal mass measuring 5.0 x 4.7 x 5.6 cm consistent with a neoplastic process until proven otherwise. This results in a small bowel obstruction at the level of the ileocecal valve. Mesenteric lymphadenopathy adjacent to the cecum likely representing michelle metastatic disease. Indeterminate but likely benign liver lesion. Given the above findings, MRI of the abdomen is recommended for further evaluation. The above findings were discussed with Dr. Escalante at 8:50 a.m. on 09/18/2018. D/ / 09/18/2018 08:59:[address] MD / tip Interpreting Provider: Jose Lane MD Chest X-Ray 09/20/18 11:25 IMPRESSION: 1. Low lung volumes with bibasilar airspace opacities, likely atelectasis. 2. Small bilateral pleural effusions. 3. Mild elevation of the right mid diaphragm with no identifiable cause. D/ / Gregorio Oliver MD / Gregorio Oliver MD Interpreting Provider: Gregorio Oliver MD - Attending Attestation I have personally performed a face to face evaluation on this patient. I have reviewed and agree with the care plan. History and Exam by me shows: The patient is seen and evaluated on morning rounds with the acute care surgery team. The patient has stabilized laboratory testing after transfusion as well as renal function. Ready for discharge. Robert Goyal MD FACS
--- NOTE | 2018-09-23 14:01 | Physician Discharge Referral ---
ExtendedCare Referral Info Transfer To: [facility] Provider in Charge: Dr. 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 manager) Institutional Level of Care: Intermediate - Diagnosis (1) Small bowel obstruction Priority: Primary Status: Resolved (2) Hypertension Priority: Secondary Status: Chronic (3) Morbid obesity Priority: Secondary Status: Chronic (4) DVT prophylaxis Priority: Secondary Status: Acute (5) Tobacco abuse Priority: Secondary Status: Chronic (6) Neoplasm causing mass effect on adjacent structures Priority: Secondary Status: Acute (7) Tachycardia Status: Acute (8) Hypoxia Priority: Secondary Status: Acute Expected Duration of Placement: <30 days Prognosis: Good Aware of Diagnosis: Patient Aware of Prognosis: Patient - Transfer Medications Prescriptions: OxyCODONE Immed Rel [Roxicodone 5 MG] 5 mg PO Q6HR PRN 3 Days #12 tablet PRN Reason: Severe Pain Home Medications: Aspirin Enteric Coated [Aspirin EC] 81 mg PO DAILY 05/12/18 [History] Atenolol [Tenormin] 50 mg PO BID 05/12/18 [History] Cyclobenzaprine [Flexeril] 10 mg PO BID PRN 05/12/18 [History] Gabapentin [Neurontin] 300 mg PO TID 05/12/18 [History] Magnesium Oxide [Mag-Ox] 400 mg PO DAILY 05/12/18 [History] Pantoprazole Sodium [Protonix] 40 mg PO DAILY 05/12/18 [History] Pravastatin Sodium [Pravachol] 40 mg PO DAILY 05/12/18 [History] amLODIPine [Norvasc] 5 mg PO DAILY 05/12/18 [History] Lisinopril-HCTZ 20-12.5 [Prinzide 20-12.5] 20 - 25 mg PO DAILY 08/28/18 [History] Allopurinol [Zyloprim 300 MG] 300 mg PO DAILY 09/20/18 [History] Ferrous Sulfate [Iron] 650 mg PO DAILY 09/20/18 [History] Linagliptin [Tradjenta] 5 mg PO DAILY 09/20/18 [History] Potassium Chloride [Klor-Con 10] 10 meq PO BID 09/20/18 [History] Docusate [Colace] 100 mg PO BID capsule 09/23/18 [Rx] Ibuprofen [Motrin] 600 mg PO Q8HR PRN tablet 09/23/18 [Rx] OxyCODONE Immed Rel [Roxicodone 5 MG] 5 mg PO Q6HR PRN 3 Days #12 tablet 09/23/18 [Rx] Polyethylene Glycol 3350 [MiraLAX] 17 gm PO DAILY PRN powd.pack 09/23/18 [Rx] Allergies/Adverse Reactions: Allergy/AdvReac Type Severity Reaction Status Date / Time ketorolac [From Toradol] Allergy Irritable Verified 09/20/18 11:01 Carbinoxamine [From Rondec] AdvReac Vomiting Verified 09/20/18 11:01 pseudoephedrine [From Rondec] AdvReac Vomiting Verified 09/20/18 11:01 - Respiratory Orders Oxygen / L per min (titrate to keep sats >90%) Smoking Cessation: Smoking cessation has been advised. For more information, call the [place] POI Quit Line at 8-730-PHZP-NOW. - Ancillary Orders May use pressure relief devices daily prn, May consult with Dentist, Debridging Machine Operator, Dancing Master PRN - Advance Directives Living Will: No Power of Grocery Cashier for Health Care: No Code Status: Full Code - Mobility Orders Ambulate - Rehabiliation Orders Rehab Potential: Good Rehab Orders: Evaluation for Physical Therapy, Evaluation for Occupational Therapy Other: General Surgical Discharge Instructions 1. No pushing, pulling, or lifting greater than 15 lbs for 6 weeks from the date of surgery. 2. You may change your dressings daily or leave open to air and you shower beginning today, but no tub baths, soaking, or swimming for 2 weeks. 3. No driving until cleared to do so per rehab and then you may resume driving when you are off narcotics and are safe to react in a car. 4. Take ibuprofen every 8 hours for discomfort. If this does not relieve discomfort, you may take the as needed Roxicodone or you may take 1000 mg acetaminophen. Eat a small snack with pain medication as this will help reduce the risk of nausea. Take narcotics as directed. Do not take more narcotics then directed and do not share your narcotics with any other person. Do not drink alcohol while on narcotics. You can take the Zofran/ondansetron if needed for nausea or with a dose of narcotics to prevent nausea. 5. Take stool softeners (Colace) or a water based laxative (Miralax) while taking narcotics. You may hold for loose stools. 6. Report any fevers greater than 100.5F, increase abdominal discomfort, drainage that looks like pus, increased redness or pain at the surgical site, or any vomiting. 7. Report any pain in the calves, shortness of breath, or rapid heartbeat. 8. Follow-up in the office as directed. 9. If you were prescribed antibiotics, do not stop them without talking to your provider. 10. Follow-up in the cancer center as directed. - Treatments Skin tear care topically daily PRN per policy - Diet Orders Regular (Diabetic) CERTIFICATION: I certify that the transfer of the above named patient to an Extended Care Facility is necessary for the continuing treatment of the diagnosis listed. The above information is true and accurate reflection of patient's current condition. Confidential - Redisclosure prohibited without a patient's written consent.
[2018-09-23] MEDS: Lisinopril-HCTZ 20-12.5mg TABLET PO SCH (14:07)
[2018-09-23] MEDS: Gabapentin 300 MG CAPSULE PO SCH ×2 (14:07→21:02)
[2018-09-23] MEDS: Ibuprofen 600 MG TABLET PO PRN (15:02)
[2018-09-24] MEDS: Ipratropium/Albuterol Neb 3 ML IH SCH ×5 (03:34→19:44)
[2018-09-24] MEDS: Ibuprofen 600 MG TABLET PO PRN ×2 (04:10→14:43)
[2018-09-24] MEDS: *HR* Enoxaparin 30 MG/0.3 ML SYRINGE SQ SCH (05:21)
[2018-09-24] MEDS: Insulin LISPRO 300 UNITS/3 ML VIAL SQ SCH ×4 (07:47→20:56)
--- NOTE | 2018-09-24 09:16 | AcuteCareSurgery Progress Note ---
Date of Encounter: 09/24/18 Time of Encounter: 09:13 - Assessment and Plan (1) Colon cancer Current Visit: Yes Status: Acute The patient is postop day 6 from a right colectomy. Tolerating soft foods. Continue with current diet. Qualifiers: Colon location: ascending Qualified Code(s): C18.2 - Malignant neoplasm of ascending colon (2) Hypokalemia Current Visit: No Status: Acute Short noted potassium level of 3.2. Will replace with oral potassium. Continue to follow BMP. (3) Anemia Current Visit: No Status: Acute A she has anemia with a hemoglobin value of 6.4. I think this is essentially delusional particular since her I&O's are positive almost 2 L. I do not think that she has an active GI bleed or a GI source for her blood loss. Due to her l ow hemoglobin level we will go ahead and give her transfusion today. We will continue to follow H&H. We will hold on transferring her to an outside facility and reconsider over the next 24-48 hours. Qualifiers: Anemia type: iron deficiency Iron deficiency anemia type: unspecified iron deficiency Qualified Code(s): D50.9 - Iron deficiency anemia, unspecified Subjective Patient reports: no new complaints, other (Tolerating PO diet. No current nausea.) Objective Vital Signs - Last 8 Hours Temp Pulse Resp BP Pulse Ox 09/24/18 07:20 16 89 09/24/18 07:12 98.1 F 77 15 108/64 97 09/24/18 04:10 98.4 F 71 16 132/69 92 Intake and Output 09/23/18 09/24/18 09/24/18 23:59 07:59 15:59 Intake Total 540 / 2080 220 / 220 Output Total 0 / 200 200 / 200 Balance 540 / 1880 20 Intake: IV Fluids 100 / 500 100 / 100 Zosyn 3.375 GM In 0.9 % Sodium 100 / 300 100 / 100 Chloride (Mini-Bag +) 100 ML @ 25 mls/hr IVPB Q8HR [facility] Rx#: [id number] Oral 440 / 1580 120 / 120 Output: Urine 0 / 200 200 / 200 Other: Meal Dinner Percent of Meal Consumed 100% Stool Size Moderate Stool Consistency soft Stool Color Brown # Voids 1 1 Weight 96.2 kg Blood Glucose* 119 79 Patient Weight 09/24/18 23:59 Weight 96.2 kg - General physical appearance well nourished, no distress - Abdomen Abdomen: Present: soft, tender (mild incisional pain to palpation) - Labs 09/25/18 09:03 09/25/18 09:03 Consult Discharge Plan - Plan Instructions: Colorectal Cancer (GEN), Colectomy (DC) Additional Instructions: General Surgical Discharge Instructions 1. No pushing, pulling, or lifting greater than 15 lbs for 6 weeks from the date of surgery. 2. You may change your dressings daily or leave open to air and you shower beg inning today, but no tub baths, soaking, or swimming for 2 weeks. 3. No driving until cleared to do so per rehab and then you may resume driving when you are off narcotics and are safe to react in a car. 4. Take ibuprofen every 8 hours for discomfort. If this does not relieve discomfort, you may take the as needed Roxicodone or you may take 1000 mg acetaminophen. Eat a small snack with pain medication as this will help reduce the risk of nausea. Take narcotics as directed. Do not take more narcotics then directed and do not share your narcotics with any other person. Do not drink alcohol while on narcotics. You can take the Zofran/ondansetron if needed for nausea or with a dose of narcotics to prevent nausea. 5. Take stool softeners (Colace) or a water based laxative (Miralax) while taking narcotics. You may hold for loose stools. 6. Report any fevers greater than 100.5F, increase abdominal discomfort, drainage that looks like pus, increased redness or pain at the surgical site, or any vomiting. 7. Report any pain in the calves, shortness of breath, or rapid heartbeat. 8. Follow-up in the office as directed. 9. If you were prescribed antibiotics, do not stop them without talking to your provider. 10. Follow-up in the cancer center as directed. Referrals: [facility] [Provider Group] (2 weeks re: new colon cancer diagnosis) Blaise Meyer MD [Primary Care Provider] - Bernabe Silva MD [Non-Partnered Physician] - 10/12/18 4:15 pm Prescriptions: OxyCODONE Immed Rel [Roxicodone 5 MG] 5 mg PO Q6HR PRN 3 Days #12 tablet PRN Reason: Severe Pain
[2018-09-24] MEDS: Pantoprazole 40 MG VIAL IVP SCH ×2 (09:17→20:21)
[2018-09-24] MEDS: amLODIPine 5 MG TABLET PO SCH (09:18)
[2018-09-24] MEDS: Gabapentin 300 MG CAPSULE PO SCH ×3 (09:18→20:21)
[2018-09-24] MEDS ORDERED: Furosemide 20 MG/2 ML VIAL IVP ONE ×2 (09:18→17:56)
[2018-09-24] MEDS: Aspirin Enteric Coated 81 MG Tablet PO SCH (09:18)
[2018-09-24] MEDS: Lisinopril-HCTZ 20-12.5mg TABLET PO SCH (09:18)
[2018-09-24] MEDS: Piperacillin/Tazobactam 3.375 GM in 0.9 % Sodium Chloride Mini Bag 100 ML IVPB SCH ×2 (09:18→16:37)
[2018-09-24] MEDS: *HR* OxyCODONE/APAP 5/325 TABLET PO PRN ×2 (09:29→16:41)
[2018-09-24] MEDS ORDERED: 0.9 % Sodium Chloride 250 ML ONE (13:47)
[2018-09-25] MEDS: Ipratropium/Albuterol Neb 3 ML IH SCH ×7 (00:04→23:02)
[2018-09-25] MEDS: Piperacillin/Tazobactam 3.375 GM in 0.9 % Sodium Chloride Mini Bag 100 ML IVPB SCH ×4 (01:01→23:26)
[2018-09-25] MEDS: *HR* Enoxaparin 30 MG/0.3 ML SYRINGE SQ SCH (05:15)
[2018-09-25] MEDS: Ibuprofen 600 MG TABLET PO PRN ×2 (06:55→23:26)
[2018-09-25] MEDS: Insulin LISPRO 300 UNITS/3 ML VIAL SQ SCH ×4 (07:43→21:54)
[2018-09-25 09:19] LABS: Basophils % 0.2 %; Eosinophils # 0.1 K/mcL (0.0-0.6); Eosinophils % 0.9 %; Immature Granulocytes % 1.2 % (0-4); Lymphocytes # 2.2 K/mcL (0.6-4.6); Lymphocytes % 17.2 %; Mean Corpuscular HGB Conc 31.3 g/dL (31.6-35.5); Mean Corpuscular Hemoglobin 25.8 pg (28.0-33.3); Mean Corpuscular Volume 82.4 fL (83.0-100.0); Mean Platelet Volume 9.4 fL (9.4-12.4); Monocytes # 0.7 K/mcL (0.0-1.3); Monocytes % 5.7 %; Neutrophils # 9.5 K/mcL (1.6-8.9); Platelet Count 423 K/mcL (140-400); Red Blood Count 3.64 M/mcL (3.82-4.97); Red Cell Distribution Width 18.1 % (11.5-14.5); Segmented Neutrophils % 74.8 %; White Blood Count 12.8 K/mcL (4.3-11.1)
[2018-09-25 09:30] LABS: Hemoglobin 9.4 g/dL (11.5-15.4)
[2018-09-25 09:38] LABS: Calcium 8.4 mg/dL (8.6-10.3); Potassium 3.8 mEq/L (3.5-5.1)
[2018-09-25] MEDS: Lisinopril-HCTZ 20-12.5mg TABLET PO SCH (11:31)
[2018-09-25] MEDS: amLODIPine 5 MG TABLET PO SCH (11:31)
[2018-09-25] MEDS: Aspirin Enteric Coated 81 MG Tablet PO SCH (11:31)
[2018-09-25] MEDS: Pantoprazole 40 MG VIAL IVP SCH ×2 (11:31→21:53)
[2018-09-25] MEDS: Gabapentin 300 MG CAPSULE PO SCH ×3 (11:31→21:53)
--- NOTE | 2018-09-25 13:34 | AcuteCareSurgery Progress Note ---
Date of Encounter: 09/25/18 Time of Encounter: 13:33 - Assessment and Plan (1) Colon cancer Current Visit: Yes Status: Acute The patient is postop day 7 from a right colectomy. Doing well. Patient was initially set up for discharge from the [facility] however the patient states that she will be staying with a friend and would like to go home tissue with home health. She says that she has been walking up and down in the fabian and in the room and I think is a strong consideration. We will discuss this with the social work program coordinator tomorrow morning to see if we can change that status. Will follow hemoglobin level. Creatinine mildly increased will follow/repeat BMP. Qualifiers: Colon location: ascending Qualified Code(s): C18.2 - Malignant neoplasm of ascending colon (2) Hypokalemia Current Visit: No Status: Acute Potassium 3.8. Continue to follow BMP. (3) Anemia Current Visit: No Status: Acute Qualifiers: Anemia type: iron deficiency Iron deficiency anemia type: unspecified iron deficiency Qualified Code(s): D50.9 - Iron deficiency anemia, unspecified (4) Acute kidney injury Current Visit: Yes Status: Acute Creatinine level of 1.28. It was in the low 1.1 range but was elevated back on September 21 to 1.25. Will follow. Subjective Patient reports: other (Patient states actually she feels good. Tolerating by mouth diet. No nausea or vomiting.) Objective Vital Signs - Last 8 Hours Temp Pulse Resp BP Pulse Ox 09/25/18 11:34 97.8 F 76 17 157/85 93 09/25/18 11:23 16 95 09/25/18 07:54 17 91 09/25/18 07:19 98.5 F 68 17 163/81 91 Intake and Output 09/24/18 09/25/18 09/25/18 23:59 07:59 15:59 Intake Total 650 / 1330 100 / 580 480 / 580 Output Total 750 / 950 500 / 500 0 / 500 Balance -100 / 380 -400 / 80 480 / 80 Intake: IV Fluids 100 / 100 Zosyn 3.375 GM In 0.9 % Sodium 100 / 100 Chloride (Mini-Bag +) 100 ML @ 25 mls/hr IVPB Q8HR [facility] Rx#: [id number] Oral 480 / 480 Blood Product 650 / 650 Rbcs Leuko Poor As-1 Unit 350 / 350 [id number] Rbcs Leuko Poor As-3 2nd Unit 300 / 300 [id number] Output: Urine 750 / 950 500 / 500 0 / 500 Other: Meal Breakfast Percent of Meal Consumed 100% Stool Size Large Stool Consistency soft Stool Color Brown # Voids 1 Weight 96 kg Blood Glucose* 124 148 77 Patient Weight 09/25/18 23:59 Weight 96 kg - General physical appearance well nourished, no distress - Respiratory normal expansion, normal respiratory effort - Abdomen Abdomen: Present: bowel sounds present, soft, tender (Minimal tenderness along the midline incision. Midline incision well healed no erythema and no drainage.) - Labs 09/25/18 09:03 09/25/18 09:03 Diabetes panel 09/25/18 Range/Units 09:03 Sodium 141 (136-145) mEq/L Potassium 3.8 (3.5-5.1) mEq/L Chloride 107 (98-107) mEq/L Carbon Dioxide 20 L (23-29) mEq/L BUN 23 H (6-20) mg/dL Creatinine 1.28 H (0.60-1.20) mg/dL Glucose 91 (70-105) mg/dL Calcium 8.4 L (8.6-10.3) mg/dL Calcium panel 09/25/18 Range/Units 09:03 Calcium 8.4 L (8.6-10.3) mg/dL Pituitary panel 09/25/18 Range/Units 09:03 Sodium 141 (136-145) mEq/L Potassium 3.8 (3.5-5.1) mEq/L Chloride 107 (98-107) mEq/L Carbon Dioxide 20 L (23-29) mEq/L BUN 23 H (6-20) mg/dL Creatinine 1.28 H (0.60-1.20) mg/dL Glucose 91 (70-105) mg/dL Calcium 8.4 L (8.6-10.3) mg/dL Adrenal panel 09/25/18 Range/Units 09:03 Sodium 141 (136-145) mEq/L Potassium 3.8 (3.5-5.1) mEq/L Chloride 107 (98-107) mEq/L Carbon Dioxide 20 L (23-29) mEq/L BUN 23 H (6-20) mg/dL Creatinine 1.28 H (0.60-1.20) mg/dL Glucose 91 (70-105) mg/dL Calcium 8.4 L (8.6-10.3) mg/dL Consult Discharge Plan - Plan Instructions: Colorectal Cancer (GEN), Colectomy (DC) Additional Instructions: General Surgical Discharge Instructions 1. No pushing, pulling, or lifting greater than 15 lbs for 6 weeks from the date of surgery. 2. You may change your dressings daily or leave open to air and you shower beginning today, but no tub baths, soaking, or swimming for 2 weeks. 3. No driving until cleared to do so per rehab and then you may resume driving when you are off narcotics and are safe to react in a car. 4. Take ibuprofen every 8 hours for discomfort. If this does not relieve discomfort, you may take the as needed Roxicodone or you may take 1000 mg pamela taminophen. Eat a small snack with pain medication as this will help reduce the risk of nausea. Take narcotics as directed. Do not take more narcotics then directed and do not share your narcotics with any other person. Do not drink alcohol while on narcotics. You can take the Zofran/ondansetron if needed for nausea or with a dose of narcotics to prevent nausea. 5. Take stool softeners (Colace) or a water based laxative (Miralax) while taking narcotics. You may hold for loose stools. 6. Report any fevers greater than 100.5F, increase abdominal discomfort, drainage that looks like pus, increased redness or pain at the surgical site, or any vomiting. 7. Report any pain in the calves, shortness of breath, or rapid heartbeat. 8. Follow-up in the office as directed. 9. If you were prescribed antibiotics, do not stop them without talking to your provider. 10. Follow-up in the cancer center as directed. Referrals: [facility] [Provider Group] (2 weeks re: new colon cancer diagnosis) Blaise Meyer MD [Primary Care Provider] - Bernabe Silva MD [Non-Partnered Physician] - 10/12/18 4:15 pm Prescriptions: OxyCODONE Immed Rel [Roxicodone 5 MG] 5 mg PO Q6HR PRN 3 Days #12 tablet PRN Reason: Severe Pain
[2018-09-26] MEDS: Ipratropium/Albuterol Neb 3 ML IH SCH ×4 (04:14→15:59)
[2018-09-26 06:18] LABS: Basophils % 0.2 %; Eosinophils # 0.2 K/mcL (0.0-0.6); Eosinophils % 1.7 %; Hematocrit 25.8 % (35.3-44.9); Hemoglobin 7.9 g/dL (11.5-15.4); Immature Granulocytes % 1.9 % (0-4); Lymphocytes # 1.9 K/mcL (0.6-4.6); Lymphocytes % 15.6 %; Mean Corpuscular HGB Conc 30.6 g/dL (31.6-35.5); Mean Corpuscular Hemoglobin 24.8 pg (28.0-33.3); Mean Corpuscular Volume 81.1 fL (83.0-100.0); Mean Platelet Volume 9.6 fL (9.4-12.4); Monocytes # 0.7 K/mcL (0.0-1.3); Monocytes % 5.9 %; Platelet Count 383 K/mcL (140-400); Red Blood Count 3.18 M/mcL (3.82-4.97); Red Cell Distribution Width 18.4 % (11.5-14.5); Segmented Neutrophils % 74.7 %; White Blood Count 12.1 K/mcL (4.3-11.1)
[2018-09-26 06:33] LABS: BUN/Creatinine Ratio 19 (6-26); Blood Urea Nitrogen 20 mg/dL (6-20); Carbon Dioxide 23 mEq/L (23-29); Chloride 109 mEq/L (98-107); Glucose 116 mg/dL (70-105); Osmolality,Calculated 298 (280-300); Potassium 3.6 mEq/L (3.5-5.1); Sodium 142 mEq/L (136-145); eGFR For African Americans > 60 (> 60); eGFR For Non-African Americans 55 (> 60)
[2018-09-26] MEDS: *HR* Enoxaparin 30 MG/0.3 ML SYRINGE SQ SCH (06:40)
[2018-09-26] MEDS: Insulin LISPRO 300 UNITS/3 ML VIAL SQ SCH ×2 (07:44→11:43)
[2018-09-26] MEDS: Piperacillin/Tazobactam 3.375 GM in 0.9 % Sodium Chloride Mini Bag 100 ML IVPB SCH (07:45)
[2018-09-26] MEDS: Pantoprazole 40 MG VIAL IVP SCH (10:52)
[2018-09-26] MEDS: Lisinopril-HCTZ 20-12.5mg TABLET PO SCH (10:52)
[2018-09-26] MEDS: amLODIPine 5 MG TABLET PO SCH (10:52)
[2018-09-26] MEDS: Aspirin Enteric Coated 81 MG Tablet PO SCH (10:52)
[2018-09-26] MEDS: Gabapentin 300 MG CAPSULE PO SCH ×2 (10:52→15:52)
[2018-09-26] MEDS: Ibuprofen 600 MG TABLET PO PRN (12:47)
[2018-09-26 15:06] VITALS: BP 132/72
== END 2018-09-26 16:02 | DRG 231 ==
LOC: EMEROOARM 08:01 → 3ANU 09:22
PROVIDERS: ADMIT Surgery; ATTEND Surgery